=== PATIENT | male | born 1955 | race Caucasian/White ===

== ENCOUNTER → 2018-04-12 08:03 | Outpatient (CLI) | payer MEDICAID, SELFPAY ==
[2018-04-12 10:39] LABS: Hematocrit 50.2 % (40-54); Hemoglobin 16.3 g/dl (13.0-16.5); Mean Corp Hgb Conc 32.5 g/gl (32-36); Mean Corpuscular Hgb 30.6 pg (27.0-32.0); Mean Corpuscular Volume 94.2 fL (80-94); Platelet Count 761 K/mm3 (150-450); RBC Distribution Width CV 13.8 % (11.6-14.6); RBC Distribution Width SD 47.3 fl (35.1-43.9); Red Blood Count 5.33 M/mm3 (4.6-6.2); White Blood Count 13.5 K/mm3 (4.4-11.0)
[2018-04-12 10:40] LABS: Scan Indicated on CBC? Y/N YES- FLAGS NOTED
[2018-04-12 10:43] LABS: Anion Gap 8 (5-15); BUN 17 mg/dL (7-18); BUN/Creat Ratio 13.7 RATIO (10-20); Chloride 105 mmol/L (98-107); Creatinine, Serum 1.24 mg/dL (0.70-1.30); EST Glomerular Filtration Rate 63 mL/min (>60); Est Glom Filt Rate - Afr Amer 76 mL/min (>60); Glucose 96 mg/dL (74-106); Potassium 5.2 mmol/L (3.5-5.1); Sodium Level 140 mmol/L (136-145)
[2018-04-14 08:01] LABS: Pathologist Review Reviewed
== END ==
PROVIDERS: Family Provider Family Medicine; PCP Family Medicine
DX: I50.9 Heart failure, unspecified (principal); I48.91 Unspecified atrial fibrillation; I42.8 Other cardiomyopathies
CPT/HCPCS: 36415; 80048; 85027

== ENCOUNTER → 2018-04-21 20:00 | Outpatient (CLI) | payer MEDICAID, SELFPAY | PROVIDERS: Family Provider Family Medicine; PCP Family Medicine | DX: G47.10 Hypersomnia, unspecified (principal); I50.9 Heart failure, unspecified; I42.8 Other cardiomyopathies; I48.91 Unspecified atrial fibrillation; Z72.0 Tobacco use | CPT/HCPCS: 95810 ==

== ENCOUNTER → 2018-04-27 08:45 | Outpatient (CLI) | payer MEDICAID, SELFPAY ==
--- NOTE | 2018-04-27 08:48 | ECHOD_ITS ---
Reason For Study: CARDIOMYOPATHY Procedure This was a 2D Doppler, Color Flow transthoracic echocardiogram. Contrast injection was performed. Exam performed in department. Left Ventricle Normal LV size. The estimated ejection fraction is 30 %. Unable to assess diastolic dysfunction. There is moderate global hypokinesis of the left ventricle. Right Ventricle Normal RV size. Normal systolic function. Atria The left atrium is severely enlarged. The right atrium is moderately enlarged. Mitral Valve Normal mitral valve. Tricuspid Valve Normal tricuspid valve. Mild (1+) tricuspid valve insufficiency. Pulmonary artery systolic pressure is 24 mmHg. Aortic Valve Trisinus/trileaflet aortic valve. Pulmonic Valve The pulmonic valve is not well visualized. Great Vessels Normal aortic root. The pulmonary artery is normal size. Normal inferior vena cava. Pericardium/Pleural No pericardial effusion. Medication 22 gauge I.V. with prn adaptor inserted into right arm. Diluted definity 6ml given slow IV push to enhance endocardial definition. MMode/2D Measurements & Calculations LVIDd: 5.7 cm IVSd: 0.78 cm Ao root diam: 2.9 cm LVIDs: 5.0 cm LVPWd: 0.96 cm RVDd: 4.7 cm FS: 12.4 % LAV(MOD-bp): 139.6 ml EDV(MOD-sp4): 112.5 ml EDV(MOD-sp2): 104.9 ml LAV(MOD-bp) Indexed: 63.9 ml/m2 ESV(MOD-sp4): 65.6 ml EF(MOD-sp2): 42.1 % LAV(MOD-sp2): 110.1 ml EF(MOD-sp4): 41.7 % LAV(MOD-sp4): 142.2 ml SV(MOD-sp4): 46.9 ml SV(MOD-sp2): 44.2 ml LA A4 area: 36.8 cm2 RA A4 area: 25.9 cm2 Doppler Measurements & Calculations Ao V2 max: 97.3 cm/sec LV V1 max: 67.0 cm/sec PA V2 max: 65.1 cm/sec Ao max P.8 mmHg LV V1 max P.8 mmHg TR max deisy: 227.3 cm/sec TR max P.1 mmHg Interpretation Summary Normal LV size. The estimated ejection fraction is 30 %. Unable to assess diastolic dysfunction. There is moderate global hypokinesis of the left ventricle. The left atrium is severely enlarged. The right atrium is moderately enlarged. Mild (1+) tricuspid valve insufficiency. Compared to the previous there is a declne in LV function Ordering Physician: BASILIO MALLOY Referring Physician: JIM CHAIREZ Performed By: Jonna Prescott, DIPAK, RVT
== END ==
PROVIDERS: Family Provider Family Medicine; PCP Family Medicine
DX: I42.8 Other cardiomyopathies (principal)
CPT/HCPCS: 93306; Q9957; A4216; C8929

== ENCOUNTER → 2018-04-28 11:47 | Outpatient (CLI) | payer MEDICAID, SELFPAY ==
[2018-04-28 14:13] LABS: RBC Distribution Width CV 14.1 % (11.6-14.6)
[2018-04-28 14:19] LABS: Hematocrit 44.9 % (40-54); Hemoglobin 14.8 g/dl (13.0-16.5); Mean Corpuscular Hgb 30.8 pg (27.0-32.0); Mean Corpuscular Volume 93.3 fL (80-94); RBC Distribution Width SD 47.9 fl (35.1-43.9); Red Blood Count 4.81 M/mm3 (4.6-6.2); White Blood Count 12.4 K/mm3 (4.4-11.0)
[2018-04-28 14:20] LABS: Absolute Lymphocyte Count 1.88 X10^3/ul (0.83-4.51); Absolute Neutrophil Count 9.2 X10^3/uL (2.0-7.7); Basophil# 0.13 X10^3/uL; Eosinophil# 0.43 X10^3/uL; Eosinophils% 3.5 % (0-5); Lymphocyte # 1.88 X10^3/ul (4.0); Lymphocyte % 15.1 % (19-41); Mean Platelet Vol. 11.3 fl (6.2-12.0); Monocyte# 0.81 X10^3/uL; Monocyte% 6.5 % (0-10); Neutrophil # 9.17 X10^3/uL (2.7-7.7); Neutrophil % 73.7 % (47-70); POSITIVE COUNT NO; POSITIVE DIFFERENTIAL NO; POSITIVE MORPHOLOGY NO; Platelet Count 526 K/mm3 (150-450)
[2018-04-28 14:25] LABS: Anion Gap 9 (5-15); BUN 20 mg/dL (7-18); BUN/Creat Ratio 17.5 RATIO (10-20); Chloride 107 mmol/L (98-107); Creatinine, Serum 1.14 mg/dL (0.70-1.30); EST Glomerular Filtration Rate 69 mL/min (>60); Est Glom Filt Rate - Afr Amer 84 mL/min (>60); Glucose 98 mg/dL (74-106); Potassium 4.7 mmol/L (3.5-5.1); Sodium Level 143 mmol/L (136-145)
== END ==
PROVIDERS: Family Provider Family Medicine; PCP Family Medicine
DX: I11.0 Hypertensive heart disease with heart failure (principal); I50.32 Chronic diastolic (congestive) heart failure; I50.22 Chronic systolic (congestive) heart failure; E87.5 Hyperkalemia; G47.33 Obstructive sleep apnea (adult) (pediatric); I48.91 Unspecified atrial fibrillation; I42.9 Cardiomyopathy, unspecified; Z95.810 Presence of automatic (implantable) cardiac defibrillator
CPT/HCPCS: 36415; 80048; 85025

== ENCOUNTER → 2018-05-02 20:00 | Outpatient (CLI) | payer MEDICAID, SELFPAY | PROVIDERS: Family Provider Family Medicine; PCP Family Medicine | DX: G47.31 Primary central sleep apnea (principal); G47.33 Obstructive sleep apnea (adult) (pediatric) | CPT/HCPCS: 95811 ==

== ENCOUNTER → 2018-05-03 12:49 | Outpatient (CLI) | payer MEDICAID, SELFPAY ==
--- NOTE | 2018-05-03 13:16 | PCM.CR.HP2 ---
CR - History & Physical - General Arrival date:: 05/03/18 Arrival time:: 13:16 Date of Referral:: 03/28/18 Date of CR Evaluation:: 05/03/18 Referring Physician: Ashlee Jin Primary Diagnosis: I50.9 HF<30%, AICD Placement - History of Present Cardiac Event Onset Date: Enter Onset Date of cardiac illnesses in Comment field below Current stable Angina Pectoris:: Yes Heart Failure EF <35%:: Yes Interventions with present event:: Pacemaker defibrilator - Medications Home Medications: Ambulatory Orders Medication Instructions Recorded Eliquis 2.5 mg 05/03/18 Entresto 24 mg-26 mg Tablet 05/03/18 Metoprolol Succinate 50 mg 05/03/18 - Sleep Disorder Evaluation Hx of Sleep Apnea: Yes Do you snore loudly (louder than talking or can be heard through closed doors)?: Yes Do you often feel tired/ fatigued/ sleepy during daytime?: Yes Has anyone observed you stop breathing during sleep?: Yes History of Hypertension (for STOP score): No - getting machine soon STOP Results: Positive Advanced Directives - Advanced Directives Power of Chemical Engineering Intern: No Living Will: No Advance Directives Information Provided: No Advance Directives on File: No DNR Order?:: No Past Medical History - Past Medical Illness Medical History: Past Medical History (Last Updated 05/03/18 @ 13:29 by DEVIKA Valerio, RVT) Atrial fibrillation I48.91 CHF (congestive heart failure) I50.9 Ventricular fibrillation I49.01 - Past Surgical History Surgical History: pacemaker implantation Social History - Smoking History Smoking Status: Former smoker Years Smokin Packs Smoked per Day: 1.5 Hx Smoking Cessation Date: 2011 Hx Tobacco Use: Yes Hx Smoking Exposure: Yes - Alcohol Use Alcohol Usage: No - Occupation Occupation (List type of work in comments):: Employed Hours worked per day:: 6 - Hobbies, Recreation, Social Activities Hobbies: Walking, Exercise Recreational Activities: I can hardly do any recreational activities Social Environment - Status Marital Status: Single - lives with girlfriend - Children How many children do you have?: 2 Do any of your children live nearby?: Yes - 1 of the two - Safety Do you feel safe in your surroundings?: Yes - Assistance Do you need any assistance at home?: none Review of Systems - Review of Systems Hints: Right click = Denies (Slash). Left click = Reports ([place]) Review of Present Symptoms: Reports: Shortness of Breath with Exertion, Angina, Fatigue, Heart Arrhythmia/Irregularities - a-fib, Appetite - Normal, Appetite - Special Diet. Denies: Shortness of Breath at Rest, PVD, Operative Discomfort, Wound Healing, Dizziness/Lightheadedness, Sexual Changes - Pain Is Patient Pain Free?: Yes Risk Factor Assessment - Chief Complaint Chief Complaint: CHF, Cardiac arrest - Vital Signs Pulse Ox: 96 - Pulse Pulse Rate: 96 Pulse Rhythm: Irregular - Hypertension Blood Pressure Sitting - Left Arm: 118/70 - Stress Stress: Long-standing - Diabetes Nutrition Referral for Diabetes: No - Obesity Height: 1.83 m Weight:: 98.883 kg Weight in Pounds: 218.0 lbs Body Mass Index (BMI): 29.5 Nutritional Referral for Obesity: No - Physical Inactivity Physical Inactivity: Physically demanding job, Recreational activity - Risk Stratification Risk Guidelines: Moderate Risk: Risk Factor for Smoking, Risk Factor for Dyslipidemia, Risk Factor for Diabetes, Risk Factor for Obesity, Risk Factor for Hypertension, Risk Factor for Sedentary Lifestyle, Risk Factor for Depression - For Smoking Smoking Risk Guidelines: Smoking Low Risk: None or quit greater than 6 months ago. Smoking Moderate Risk: Smoker or quit 6 months or less ago. Smoking High Risk: Smoker - For Dyslipidemia Dyslipidemia Risk Guidelines: Low Risk: Moderate Risk: High Risk: 15-25% fat 25.1-29% fat >/= 30% fat. <7% sat fat 7-9% sat fat >9% sat fat. <150 mg chol 150-299 mg chol >/= 300 mg chol. LDL <100 LDL 100-129 LDL >/= 130. Chol/HDL ratio <5.0 Chol/HDL ratio 5.0-6.0 Chol/HDL ratio >6.0. Triglycerides <100 Triglycerides 100-149 Triglycerides >/= 150 - For Diabetes Mellitus Diabetes Risk Guidelines: Diabetes Low Risk: HgA1c <6.5% and/or FBG <120. Diabetes Moderate Risk: HgA1c 6.6-7.9% and/or FBG 120-180. Diabetes High Risk: HgA1c >/= 8% and/or FBG >180 - For Obesity/Overweight Obesity/Overweight Risk Guidelines: Obesity Low Risk: BMI <25.0. Obesity Moderate Risk: BMI 25-29.9. Obesity High Risk: BMI >/= 30.0 - For Hypertension Hypertension Risk Guidelines: Hypertension Low Risk: Systolic <120 and Diastolic <80. Hypertension Moderate Risk: Systolic 120-139 and Diastolic 80-89. Hypertension High Risk: Systolic >/= 140 and Diastolic >/= 90 - For Sedentary Lifestyle Sedentary Lifestyle Risk Guidelines: Sedentary Lifestyle Low Risk: >/= 1,500 kcal/week. Sedentary Lifestyle Moderate Risk: 700-1,499 kcal/week. Sedentary Lifestyle High Risk: < 700 kcal/week - For Depression Depression Risk Guidelines: Depression Low Risk: Not clinically depressed. Depression Moderate Risk: Mildly depressed. Depression High Risk: Clinically depressed Motivation - Motivation to Participate On a scale of 1 to 10, how prepared are you to commit to attending program?: 10 What do you see as barriers to successfully being able to complete the program?: physical limitations What do you see as the benefits of succesfully completing the program? In other words, what do you hope to get out of participating in the program?: beter fitness Are there issues you are dealing with that will interfere with completing the program?: none Do you have a spouse or signficant other, family or friends who will help support you to complete the program?: girlfriend
--- NOTE | 2018-05-03 13:26 | CR.HP_ITS ---
CR - History & Physical - General Arrival date:: 05/03/18 Arrival time:: 13:16 Date of Referral:: 03/28/18 Date of CR Evaluation:: 05/03/18 Referring Physician: Ashlee Jin Primary Diagnosis: I50.9 HF<30%, AICD Placement - History of Present Cardiac Event Onset Date: Enter Onset Date of cardiac illnesses in Comment field below Current stable Angina Pectoris:: Yes Heart Failure EF <35%:: Yes Interventions with present event:: Pacemaker defibrilator - Medications Home Medications: Ambulatory Orders Medication Instructions Recorded Eliquis 2.5 mg 05/03/18 Entresto 24 mg-26 mg Tablet 05/03/18 Metoprolol Succinate 50 mg 05/03/18 - Sleep Disorder Evaluation Hx of Sleep Apnea: Yes Do you snore loudly (louder than talking or can be heard through closed doors)? : Yes Do you often feel tired/ fatigued/ sleepy during daytime?: Yes Has anyone observed you stop breathing during sleep?: Yes History of Hypertension (for STOP score): No - getting machine soon STOP Results: Positive Advanced Directives - Advanced Directives Power of Storeroom Attendant: No Living Will: No Advance Directives Information Provided: No Advance Directives on File: No DNR Order?:: No Past Medical History - Past Medical Illness Medical History: Past Medical History (Last Updated 05/03/18 @ 13:29 by DEVIKA Valerio, RVT) Atrial fibrillation I48.91 CHF (congestive heart failure) I50.9 Ventricular fibrillation I49.01 - Past Surgical History Surgical History: pacemaker implantation Social History - Smoking History Smoking Status: Former smoker Years Smokin Packs Smoked per Day: 1.5 Hx Smoking Cessation Date: 2011 Hx Tobacco Use: Yes Hx Smoking Exposure: Yes - Alcohol Use Alcohol Usage: No - Occupation Occupation (List type of work in comments):: Employed Hours worked per day:: 6 - Hobbies, Recreation, Social Activities Hobbies: Walking, Exercise Recreational Activities: I can hardly do any recreational activities Social Environment - Status Marital Status: Single - lives with girlfriend - Children How many children do you have?: 2 Do any of your children live nearby?: Yes - 1 of the two - Safety Do you feel safe in your surroundings?: Yes - Assistance Do you need any assistance at home?: none Review of Systems - Review of Systems Hints: Right click = Denies ([place]ash). Left click = Reports ([place]) Review of Present Symptoms: Reports: Shortness of Breath with Exertion, Angina, Fatigue, Heart Arrhythmia/Irregularities - a-fib, Appetite - Normal, Appetite - Special Diet. Denies: Shortness of Breath at Rest, PVD, Operative Discomfort, Wound Healing, Dizziness/Lightheadedness, Sexual Changes - Pain Is Patient Pain Free?: Yes Risk Factor Assessment - Chief Complaint Chief Complaint: CHF, Cardiac arrest - Vital Signs Pulse Ox: 96 - Pulse Pulse Rate: 96 Pulse Rhythm: Irregular - Hypertension Blood Pressure Sitting - Left Arm: 118/70 - Stress Stress: Long-standing - Diabetes Nutrition Referral for Diabetes: No - Obesity Height: 1.83 m Weight:: 98.883 kg Weight in Pounds: 218.0 lbs Body Mass Index (BMI): 29.5 Nutritional Referral for Obesity: No - Physical Inactivity Physical Inactivity: Physically demanding job, Recreational activity - Risk Stratification Risk Guidelines: Moderate Risk: Risk Factor for Smoking, Risk Factor for Dyslipidemia, Risk Factor for Diabetes, Risk Factor for Obesity, Risk Factor for Hypertension, Risk Factor for Sedentary Lifestyle, Risk Factor for Depression - For Smoking Smoking Risk Guidelines: Smoking Low Risk: None or quit greater than 6 months ago. Smoking Moderate Risk: Smoker or quit 6 months or less ago. Smoking High Risk: Smoker - For Dyslipidemia Dyslipidemia Risk Guidelines: Low Risk: Moderate Risk: High Risk: 15-25% fat 25.1-29% fat >/= 30% fat. <7% sat fat 7-9% sat fat >9% sat fat. <150 mg chol 150-299 mg chol >/= 300 mg chol. LDL <100 LDL 100-129 LDL >/= 130. Chol/HDL ratio <5.0 Chol/HDL ratio 5.0-6.0 Chol/HDL ratio >6.0. Triglycerides <100 Triglycerides 100-149 Triglycerides >/= 150 - For Diabetes Mellitus Diabetes Risk Guidelines: Diabetes Low Risk: HgA1c <6.5% and/or FBG <120. Diabetes Moderate Risk: HgA1c 6.6-7.9% and/or FBG 120-180. Diabetes High Risk: HgA1c >/= 8% and/or FBG >180 - For Obesity/Overweight Obesity/Overweight Risk Guidelines: Obesity Low Risk: BMI <25.0. Obesity Moderate Risk: BMI 25-29.9. Obesity High Risk: BMI >/= 30.0 - For Hypertension Hypertension Risk Guidelines: Hypertension Low Risk: Systolic <120 and Diastolic <80. Hypertension Moderate Risk: Systolic 120-139 and Diastolic 80-89. Hypertension High Risk: Systolic >/= 140 and Diastolic >/= 90 - For Sedentary Lifestyle Sedentary Lifestyle Risk Guidelines: Sedentary Lifestyle Low Risk: >/= 1 ,500 kcal/week. Sedentary Lifestyle Moderate Risk: 700-1,499 kcal/week. Sedentary Lifestyle High Risk: < 700 kcal/week - For Depression Depression Risk Guidelines: Depression Low Risk: Not clinically depressed. Depression Moderate Risk: Mildly depressed. Depression High Risk: Clinically depressed Motivation - Motivation to Participate On a scale of 1 to 10, how prepared are you to commit to attending program?: 10 What do you see as barriers to successfully being able to complete the program? : physical limitations What do you see as the benefits of succesfully completing the program? In other words, what do you hope to get out of participating in the program?: beter fitness Are there issues you are dealing with that will interfere with completing the program?: none Do you have a spouse or signficant other, family or friends who will help support you to complete the program?: girlfriend
[2018-05-03 14:26] VITALS: BP 118/70; PULSE 96; O2SAT 96; BMI 29.5
[2018-05-03 14:39] VITALS: BP 118/70
--- NOTE | 2018-05-03 14:39 | CR.ITP_ITS ---
General Information - General Information Admitting Diagnosis: I50.09 CHF, AICD - Education/Goals Barriers to Learning: None Cardiac Rehabilitation Goals: 1. Maintain the individual as the primary focus of care. 2. To improve the patient's quality of life. 3. Identification of cardiac risk factors and provide cardiac risk factor management. 4. Enhance the psychosocial status of the patient. 5. Reconditioning enough to allow the patient to resume customary activities. 6. Control symptoms of cardiac disease Scale for measuring improvement of personal goals: Enter appropriate number in Comments. 2 = Unchanged. 3 = Slightly Better. 4 = Moderate Improvement. 5 = Met my Goal Personal Goals: Initial Assessment: Participate in home exercise program, Get back to work, or to resume activities faster, Improve knowledge of cardiac disease, Improve muscle strength and endurance, Improve diet and eating habits ( eat healthier) Exercise - Initial Assessment - Visit Date of Eval: 05/03/18 - Initial EVAL - Stages of Change Stages of Change:: Contemplate - Exercise Prescription Mode:: Treadmill, Biodyne, Rower, Airdyne, NuStep, Arm Ergometer Angina with exercise?: No Target Heart Rate:: 111-118 - Hypertension Do any of the following apply?: No Resting Blood Pressure:: 118/70 - Intervention Home Exercise/Activity Goal:: Sitting Time <3 hrs/day - Education Goals:: Warm-up, RPE MARISA Scale, S/S, Safe Exercise, Self-Monitoring - Exercise Program Goals Exercise Program Goals: Aerobic Activity >30 min, B/P <130/80 Nutrition - Initial Assessment - Program Goals Nutrition Program Goals: LDL <70. Total Cholesterol <200. HDL >45. Triglycerides <150. HgbA1C <7%. BMI <25 - Visit Date of Assessment:: 05/03/18 - Stages of Change Stages of Change:: Contemplate - Diabetes Diabetes:: No - Weight Management Height: 1.83 m Weight:: 98.883 kg Total Score:: 3 - Intervention Referral to dietitian:: No Referral to Diabetic Clinic:: No Will attend diet classes:: Yes - Education Gave educational materials for:: Signs & symptoms of hypoglycemia, Signs & symptoms of hyperglycemia, Relate diabetes to coronary artery disease, Healthy eating Tobacco - Initial Assessment - Program Goals Tobacco Program Goals: Complete smoking cessation. Attend education classes. Improve Knowledge Test score - Stage of Change Stages of Change:: Contemplate - Learning Barriers Total Score:: 19 - Family Support Do you have family support?: Yes - Tobacco Use How long ago did you quit using tobacco products?: Greater than or equal to 6 months ago Do you use smokeless tobacco?: No - Intervention Smoking Cessation Referral:: No Individual Education/Counseling:: No Education Schedule Given:: Yes - Education Gave educational material for:: Tobacco triggers, Coronary artery disease, Risk factors, Sexuality, Medical compliance, Cardiac A&P, Angina signs & symptoms Psychosocial - Initial Assess - Target Goals Target Goals: Assess presence or absence of depression. Using a valid screening tool, maximizes coping skills. Positive support system - Stages of Change Stages of Change:: Contemplate - Psychosocial Test Tool Used:: HANDS Depression Questionnaire Total Mood Screening Score:: 8 Self-Efficacy Score:: 7 - Intervention PS - Interventions: Yes Attend Stress Management Classes, Yes Uses Stress Management Skills, No Referral to Mental Health, No Referral to [facility] Case Management, No Referral to Physician - Education Gave educational materials for:: Coping techniques, Signs & symptoms of depression, Stress management, Relaxation techniques - Assistive Devices Assistive Devices:: None Fall Risk Assessed:: Yes Patient Health Questionnaire Initial Assessment 1. Little interest or pleasure in doing things: Several days 2. Feeling down, depressed, or hopeless: Not at all 3. Trouble falling or staying asleep, or sleeping too much: Not at all 4. Feeling tired or having little energy: Nearly every day 5. Poor appetite or overeating: Nearly every day 6. Feeling bad about yourself -- or that you are a failure or have let yourself or your family down: Not at all 7. Trouble concentrating on things, such as reading the newspaper or watching television: Several days 8. Moving or speaking so slowly that other people could have noticed. Or the opposite - being so fidgety or restless that you have been moving around a lot more than usual: Not at all 9. Thoughts that you would be better off , or of hurting yourself in some way: Not at all How difficult have these problems made it for you to do your work, take care of things at home, or get along with other people?: Somewhat difficult Total Score: 8 [id number] SV Test - Statements CAD is a disease of the arteries in the heart: False Examples of risk factors for heart disease: True Angina is chest pain or discomfort: True The benefits of resistance training include: True Eating more meat and dairy products: False Anti-platelet medications such as aspirin are important: True The only effective way to manage stress: False An exercise warm-up slowly increases heart rate: True Prepared, processed foods usually have high sodium: True Depression is common after a heart attack: True The statin medications lower cholesterol: True To control blood pressure, lower the amount of sodium: True If someone gets chest discomfort during walking: False Transfats are partially hydrogenated vegetable oils: True Sleep apnea that is not treated increases the risk: False To control cholesterol, one should become a vegetarian: False Someone knows if he/she is exercising at the right level: False Diabetes cannot be prevented with exercise & health eating: False Stress is a large risk for heart attack: True A diet that can help lower blood pressure is rich in: True - Total Score Total Correct Responses: 19 Self-Efficacy Initial Assessment We would like to know how confident you are in doing certain activities. Please select your confidence level for:: Select your confidence level for the following using the scale 1-10 where 1 is not at all confident and 10 is totally confident. Your score is the average of all 6 responses. Fatigue: How confident are you that you can keep the fatigue caused by your disease from interfering with the things you want to do? Select Number: 2 Physical Discomfort or Pain: How confident are you that you can keep the physical discomfort or pain of your disease from interfering with the things you want to do? Select Number: 5 Emotional Distress: How confident are you that you can keep the emotional distress caused by your disease from interfering with the things you want to do? Select Number: 8 Other Symptoms or Health Problems: How confident are you that you can keep other symptoms or health problems from interfering with the things you want to do? Select Number: 8 Different Tasks and Activities: How confident are you that you can do the different tasks and activities needed to manage your health condition so as to reduce your need to see a doctor? Select Number: 10 Medication: How confident are you that you can do things other than just taking medication to reduce how much your illness affects your everyday life? Select Number: 10 Total Score:: 7 Nutrition Survey - Nutrition Survey Instructions Scoring Instructions: Scoring is as follows: Yes = 1 points. No = 0 point. Patient score that is >/=12 is considered to be at potential nutritional risk and could benefit from a referral to a registered dietitian. - Nutrition Survey Initial Have you lost >10 lbs over the past 2 months without trying?: No Are you following a special diet at home for diabetes, low fat, or low salt?: Yes Are you interested in meeting with a dietitian for help understanding your diet? : Yes Do you eat less than 3 meals a day?: No Do you eat fatty meats (rock, sausage, ribs, etc), fried foods, desserts, large amounts of salad dressings, margarine, butter, or cheese most days?: No Do you have food allergies? [Enter types in comment field]: No Do you eat in restaurants more than 3 times a week?: No Do you season food with salt, seasoning salt, or garlic salt?: Yes Do you used canned, boxed, frozen meals, or soups, seasoning packets?: No Total Score:: 3
== END ==
PROVIDERS: Family Provider Family Medicine; PCP Family Medicine
DX: I50.9 Heart failure, unspecified (principal); Z95.810 Presence of automatic (implantable) cardiac defibrillator

== ENCOUNTER → 2018-05-10 15:29 | Outpatient (CLI) | payer MEDICAID, SELFPAY ==
[2018-05-10 19:10] LABS: Uric Acid 8.8 mg/dL (3.5-7.2)
== END ==
PROVIDERS: Family Provider Family Medicine; PCP Family Medicine; Visit Provider Family Medicine
DX: M10.9 Gout, unspecified (principal)
CPT/HCPCS: 36415; 84550

== ENCOUNTER 2018-06-16 09:15 | Outpatient (RCR) | payer MEDICAID, SELFPAY ==
--- NOTE | 2018-06-09 13:36 | CR.ITP_ITS ---
General Information - General Information Admitting Diagnosis: heart failure LVEF<30%, AICD placement - Education/Goals Cardiac Rehabilitation Goals: 1. Maintain the individual as the primary focus of care. 2. To improve the patient's quality of life. 3. Identification of cardiac risk factors and provide cardiac risk factor management. 4. Enhance the psychosocial status of the patient. 5. Reconditioning enough to allow the patient to resume customary activities. 6. Control symptoms of cardiac disease Scale for measuring improvement of personal goals: Enter appropriate number in Comments. 2 = Unchanged. 3 = Slightly Better. 4 = Moderate Improvement. 5 = Met my Goal Exercise - 30-day Assessment - Visit Date of Eval: 06/09/18 Session #:: 7 - Stages of Change Stages of Change:: Action - Exercise Prescription Mode:: Treadmill, Rower, NuStep Frequency (x/week): 3 Duration:: 30 METs - Progression: 0.5-1 MET as tolerated: 2.5 Target Heart Rate:: 111-118 Max HR 150 A-Fib - Hypertension Resting Blood Pressure:: 114/50 Peak Exercise Blood Pressure:: 120/64 Medication Changes:: Yes - 05/23 inc Metoprolol 100 mg BID - Intervention Home Exercise/Activity Goal:: Moderate Exercise 30 min/day x 5 days/wk - Education Goals:: Warm-up, RPE MARISA Scale, S/S, Safe Exercise, Self-Monitoring - Exercise Program Goals Exercise Program Goals: Aerobic Activity >30 min, B/P <130/80 Nutrition - 30-Day Assessment - Program Goals Nutrition Program Goals: LDL <70. Total Cholesterol <200. HDL >45. Triglycerides <150. HgbA1C <7%. BMI <25 - Visit Date of Eval: 06/09/18 - Stages of Change Stages of Change:: Action - Lipids Has the patient seen the dietitian?: No - Weight Management Weight:: 101.151 kg - Intervention Referral to dietitian:: No Referral to Diabetic Clinic:: No Will attend diet classes:: Yes - Education Attended class for:: Signs & symptoms of hypoglycemia, Signs & symptoms of hyperglycemia, Relate diabetes to coronary artery disease, Healthy eating Tobacco - 30-Day Assessment - Program Goals Tobacco Program Goals: Complete smoking cessation. Attend education classes. Improve Knowledge Test score - Stage of Change Stages of Change:: Action - Learning Barriers Learning Barriers: Participates in education - Family Support Do you have family support?: Yes - Tobacco Use Tobacco Use: Non-smoker Do you use smokeless tobacco?: No - Intervention Smoking Cessation Referral:: No Individual Education/Counseling:: No Education Schedule Given:: Yes - Education Attended class for:: Tobacco triggers, Coronary artery disease, Risk factors, Sexuality, Medical compliance, Cardiac A&P, Angina signs & symptoms Psychosocial - Initial Assess - Target Goals Target Goals: Assess presence or absence of depression. Using a valid screening tool, maximizes coping skills. Positive support system - Psychosocial Test Tool Used:: HANDS Depression Questionnaire - Assistive Devices Fall Risk Assessed:: Yes Psychosocial - 30-Day Assess - Target Goals Target Goals: Assess presence or absence of depression. Using a valid screening tool, maximizes coping skills. Positive support system - Stages of Change Stages of Change:: Action - Psychosocial Test Tool Used:: HANDS Depression Questionnaire - Intervention PS - Interventions: Yes Attend Stress Management Classes, Yes Uses Stress Management Skills, No Referral to Mental Health, No Referral to [facility] Case Management, No Referral to Physician - Education Attended classes for:: Coping techniques, Signs & symptoms of depression, Stress management, Relaxation techniques - Assistive Devices Assistive Devices:: None Fall Risk Assessed:: Yes Patient Health Questionnaire 30-Day Re-eval Assessment 1. Little interest or pleasure in doing things: Several days 2. Feeling down, depressed, or hopeless: Not at all 3. Trouble falling or staying asleep, or sleeping too much: Not at all 4. Feeling tired or having little energy: Nearly every day 5. Poor appetite or overeating: Nearly every day 6. Feeling bad about yourself -- or that you are a failure or have let yourself or your family down: Not at all 7. Trouble concentrating on things, such as reading the newspaper or watching television: Several days 8. Moving or speaking so slowly that other people could have noticed. Or the opposite - being so fidgety or restless that you have been moving around a lot more than usual: Not at all 9. Thoughts that you would be better off , or of hurting yourself in some way: Not at all How difficult have these problems made it for you to do your work, take care of things at home, or get along with other people?: Somewhat difficult Total Score: 8 Self-Efficacy 30-Day Re-eval Assessment We would like to know how confident you are in doing certain activities. Please select your confidence level for:: Select your confidence level for the following using the scale 1-10 where 1 is not at all confident and 10 is totally confident. Your score is the average of all 6 responses. Fatigue: How confident are you that you can keep the fatigue caused by your disease from interfering with the things you want to do? Select Number: 3 Physical Discomfort or Pain: How confident are you that you can keep the physical discomfort or pain of your disease from interfering with the things you want to do? Select Number: 5 Emotional Distress: How confident are you that you can keep the emotional distress caused by your disease from interfering with the things you want to do? Select Number: 8 Other Symptoms or Health Problems: How confident are you that you can keep other symptoms or health problems from interfering with the things you want to do? Select Number: 8 Different Tasks and Activities: How confident are you that you can do the different tasks and activities needed to manage your health condition so as to reduce your need to see a doctor? Select Number: 10 Medication: How confident are you that you can do things other than just taking medication to reduce how much your illness affects your everyday life? Select Number: 10 Total Score:: 7
[2018-06-09 13:39] VITALS: BP 114/50; BP 120/64
== END 2018-06-16 23:59 ==
LOC: CR 09:15
PROVIDERS: Family Provider Family Medicine; PCP Family Medicine
DX: I50.9 Heart failure, unspecified (principal)
CPT/HCPCS: 93798

== ENCOUNTER → 2018-07-04 09:49 | Outpatient (CLI) | payer MEDICAID, SELFPAY ==
--- NOTE | 2018-07-04 09:53 | ECHOD_ITS ---
Reason For Study: NONISCHEMIC CM Procedure This was a 2D Doppler, Color Flow transthoracic echocardiogram. The study was technically limited. Exam performed in department. Left Ventricle Mildly dilated left ventricle. The estimated ejection fraction is 30 %. Moderately severe global left ventricular systolic dysfunction. Diastolic function is indeterminate. There is moderate to severe global hypokinesis of the left ventricle. Right Ventricle ICD or pacer leads identified within the right ventricle. Mildly dilated right ventricle. Mild global right ventricular systolic dysfunction. Atria The left atrium is severely enlarged. Normal right atrium. Mitral Valve Mild diffuse mitral valve thickening. Mild (1+) eccentric mitral valve insufficiency. Tricuspid Valve Normal tricuspid valve. Aortic Valve Normal aortic valve. Trisinus/trileaflet aortic valve. Pulmonic Valve Normal pulmonic valve. Great Vessels Normal aortic root. The pulmonary artery is normal size. Normal inferior vena cava. Pericardium/Pleural No pericardial effusion. Medication Definity deferrred. DEFINITY REACTION Severe back pain to Definity on previous echo. DO NOT USE!!. MMode/2D Measurements & Calculations LVIDd: 5.9 cm IVSd: 1.0 cm Ao root diam: 3.5 cm LVIDs: 4.4 cm LVPWd: 0.94 cm LA dimension: 4.8 cm RVDd: 4.3 cm FS: 25.7 % LAV(MOD-bp): 129.3 ml LVAd ap4: 39.8 cm2 SV(MOD-sp4): 69.1 ml LAV(MOD-bp) Indexed: 59.2 ml/m2 EDV(MOD-sp4): 150.2 ml LAV(MOD-sp2): 110.5 ml EDV(sp4-el): 164.1 ml LAV(MOD-sp4): 124.9 ml LVAs ap4: 26.6 cm2 ESV(MOD-sp4): 81.1 ml ESV(sp4-el): 84.5 ml EF(MOD-sp4): 46.0 % EF(sp4-el): 48.5 % SV(sp4-el): 79.6 ml LA A4 area: 36.0 cm2 RA A4 area: 18.2 cm2 Doppler Measurements & Calculations Lat Peak E' Kaveh: 3.0 cm/sec Med Peak E' Kaveh: 3.2 cm/sec Ao V2 max: 82.6 cm/sec Ao max P.7 mmHg LV V1 max: 66.4 cm/sec PA V2 max: 91.3 cm/sec PI end-d kaveh: 129.2 cm/sec LV V1 max P.8 mmHg TR max kaveh: 228.1 cm/sec TR max P.8 mmHg Interpretation Summary Mildly dilated left ventricle. The estimated ejection fraction is 30 %. Moderately severe global left ventricular systolic dysfunction. Diastolic function is indeterminate. The left atrium is severely enlarged. Compared to prior study, there is no significant change. Ordering Physician: Cassia Jin Referring Physician: JIM CHAIREZ Performed By: Jonna Prescott, DIPAK, RVT
== END ==
PROVIDERS: Family Provider Family Medicine; PCP Family Medicine
DX: G47.33 Obstructive sleep apnea (adult) (pediatric) (principal); I42.0 Dilated cardiomyopathy; I48.0 Paroxysmal atrial fibrillation; I50.42 Chronic combined systolic (congestive) and diastolic (congestive) heart failure; E87.5 Hyperkalemia; I95.9 Hypotension, unspecified
CPT/HCPCS: 93306

== ENCOUNTER 2018-07-14 09:15 | Outpatient (RCR) | payer MEDICAID, SELFPAY ==
[2018-06-17 00:17] VITALS: BP 114/50; BP 120/64
--- NOTE | 2018-07-12 13:38 | PCM.CR.ITP ---
General Information - General Information Admitting Diagnosis: heart failure LVEF <30%, AICD placement - Education/Goals Cardiac Rehabilitation Goals: 1. Maintain the individual as the primary focus of care. 2. To improve the patient's quality of life. 3. Identification of cardiac risk factors and provide cardiac risk factor management. 4. Enhance the psychosocial status of the patient. 5. Reconditioning enough to allow the patient to resume customary activities. 6. Control symptoms of cardiac disease Scale for measuring improvement of personal goals: Enter appropriate number in Comments. 2 = Unchanged. 3 = Slightly Better. 4 = Moderate Improvement. 5 = Met my Goal Exercise - 60-Day Assessment - Visit Date of Eval: 07/12/18 Session #:: 20 - Stages of Change Stages of Change:: Action - Exercise Prescription Mode:: Treadmill, Airdyne Frequency (x/week): 3 Duration:: 30 METs: 3.6 Target Heart Rate:: 111-118 Max HR 93 - Hypertension Resting Blood Pressure:: 104/70 Peak Exercise Blood Pressure:: 118/70 Medication Changes:: Yes - 07/04 Digoxin 0.125 mg QD started - Intervention Home Exercise/Activity Goal:: Sitting Time <3 hrs/day - Education Goals:: Warm-up, RPE MARISA Scale, S/S, Safe Exercise, Self-Monitoring - Exercise Program Goals Exercise Program Goals: Aerobic Activity >30 min, B/P <130/80 Nutrition - 60-Day Assessment - Program Goals Nutrition Program Goals: LDL <70. Total Cholesterol <200. HDL >45. Triglycerides <150. HgbA1C <7%. BMI <25 - Visit Date of Eval: 07/12/18 - Stages of Change Stages of Change:: Action - Lipids Has the patient seen the dietitian?: No - Diabetes Diabetes:: No - Intervention Referral to dietitian:: No Referral to Diabetic Clinic:: No Will attend diet classes:: Yes - Education Attended class for:: Signs & symptoms of hypoglycemia, Signs & symptoms of hyperglycemia, Relate diabetes to coronary artery disease, Healthy eating Tobacco - 60-Day Assessment - Program Goals Tobacco Program Goals: Complete smoking cessation. Attend education classes. Improve Knowledge Test score - Stage of Change Stages of Change:: Action - Learning Barriers Learning Barriers: Participates in education - Family Support Do you have family support?: Yes - Tobacco Use Tobacco Use: Non-smoker Do you use smokeless tobacco?: No - Intervention Smoking Cessation Referral:: No Individual Education/Counseling:: No Education Schedule Given:: Yes - Education Attended class for:: Tobacco triggers, Coronary artery disease, Risk factors, Sexuality, Medical compliance, Cardiac A&P, Angina signs & symptoms Psychosocial - Initial Assess - Target Goals Target Goals: Assess presence or absence of depression. Using a valid screening tool, maximizes coping skills. Positive support system - Psychosocial Test Tool Used:: HANDS Depression Questionnaire - Assistive Devices Fall Risk Assessed:: Yes Psychosocial - 60-Day Assess - Target Goals Target Goals: Assess presence or absence of depression. Using a valid screening tool, maximizes coping skills. Positive support system - Stages of Change Stages of Change:: Action - Psychosocial Test Tool Used:: HANDS Depression Questionnaire - Intervention PS - Interventions: Yes Attend Stress Management Classes, Yes Uses Stress Management Skills, No Referral to Mental Health, No Referral to [facility] Case Management, No Referral to Physician - Education Attended classes for:: Coping techniques, Signs & symptoms of depression, Stress management, Relaxation techniques - Assistive Devices Assistive Devices:: None Fall Risk Assessed:: Yes Patient Health Questionnaire 60-Day Re-eval Assessment 1. Little interest or pleasure in doing things: Several days 2. Feeling down, depressed, or hopeless: Not at all 3. Trouble falling or staying asleep, or sleeping too much: Not at all 4. Feeling tired or having little energy: Nearly every day 5. Poor appetite or overeating: Nearly every day 6. Feeling bad about yourself -- or that you are a failure or have let yourself or your family down: Not at all 7. Trouble concentrating on things, such as reading the newspaper or watching television: Several days 8. Moving or speaking so slowly that other people could have noticed. Or the opposite - being so fidgety or restless that you have been moving around a lot more than usual: Not at all 9. Thoughts that you would be better off , or of hurting yourself in some way: Not at all How difficult have these problems made it for you to do your work, take care of things at home, or get along with other people?: Somewhat difficult Total Score: 8 Self-Efficacy 60-Day Re-eval Assessment We would like to know how confident you are in doing certain activities. Please select your confidence level for:: Select your confidence level for the following using the scale 1-10 where 1 is not at all confident and 10 is totally confident. Your score is the average of all 6 responses. Fatigue: How confident are you that you can keep the fatigue caused by your disease from interfering with the things you want to do? Select Number: 3 Physical Discomfort or Pain: How confident are you that you can keep the physical discomfort or pain of your disease from interfering with the things you want to do? Select Number: 5 Emotional Distress: How confident are you that you can keep the emotional distress caused by your disease from interfering with the things you want to do? Select Number: 8 Other Symptoms or Health Problems: How confident are you that you can keep other symptoms or health problems from interfering with the things you want to do? Select Number: 8 Different Tasks and Activities: How confident are you that you can do the different tasks and activities needed to manage your health condition so as to reduce your need to see a doctor? Select Number: 10 Medication: How confident are you that you can do things other than just taking medication to reduce how much your illness affects your everyday life? Select Number: 10 Total Score:: 7
[2018-07-12 13:43] VITALS: BP 104/70; BP 118/70
== END 2018-07-16 23:59 ==
LOC: CR 09:15
PROVIDERS: Family Provider Family Medicine; PCP Family Medicine
DX: I50.9 Heart failure, unspecified (principal)
CPT/HCPCS: 93798

== ENCOUNTER → 2018-08-08 11:00 | Outpatient (CLI) | payer MEDICAID, SELFPAY | PROVIDERS: Family Provider Family Medicine; PCP Family Medicine; Visit Provider Nurse Practitioner Acute Care | DX: G47.33 Obstructive sleep apnea (adult) (pediatric) (principal) | CPT/HCPCS: 98960; G0463 ==

== ENCOUNTER 2018-08-16 09:15 | Outpatient (RCR) | payer MEDICAID, SELFPAY ==
[2018-07-17 00:20] VITALS: BP 104/70; BP 118/70
--- NOTE | 2018-08-11 08:15 | PCM.CR.ITP ---
Exercise - Final/Discharge - Visit Date of Eval: 08/11/18 Session #:: 32 - Stages of Change Stages of Change:: Action - Exercise Prescription Mode:: Treadmill, Rower, Airdyne, NuStep Frequency (x/week): 3 Duration:: 35 METs: 5.5 Target Heart Rate:: 118-135 - Hypertension Do any of the following apply?: Yes, Medication Resting Blood Pressure:: 98/66 Peak Exercise Blood Pressure:: 126/70 - Intervention Home Exercise/Activity Goal:: Moderate Exercise 30 min/day x 5 days/wk - Education Goal Progress: Goal Met - Exercise Program Goals Exercise Program Goals: Aerobic Activity >30 min Nutrition - Final Assessment - Program Goals Nutrition Program Goals: LDL <70. Total Cholesterol <200. HDL >45. Triglycerides <150. HgbA1C <7%. BMI <25 - Visit Date of Eval: 08/11/18 - Stages of Change Stages of Change:: Action - Diabetes Diabetes:: No Non-Insulin Dependent?: No - Weight Management Height: 6 ft Weight:: 222 lb 8 oz Body Fat %:: 29.57 - Intervention Referral to dietitian:: No Referral to Diabetic Clinic:: No Will attend diet classes:: Yes - Education Education Goal Reached?: Yes Tobacco - Final Assessment - Program Goals Tobacco Program Goals: Complete smoking cessation. Attend education classes. Improve Knowledge Test score - Stage of Change Stages of Change:: Action - Family Support Do you have family support?: Yes - Tobacco Use Tobacco Use: Non-smoker Do you use smokeless tobacco?: No - Intervention Smoking Cessation Referral:: No Individual Education/Counseling:: No Education Schedule Given:: Yes - Education Education Goal Reached?: Yes - Patient actively participated in education Psychosocial - Initial Assess - Target Goals Target Goals: Assess presence or absence of depression. Using a valid screening tool, maximizes coping skills. Positive support system - Psychosocial Test Tool Used:: HANDS Depression Questionnaire - Assistive Devices Fall Risk Assessed:: Yes Psychosocial - Final Assessmen - Target Goals Target Goals: Assess presence or absence of depression. Using a valid screening tool, maximizes coping skills. Positive support system - Stages of Change Stages of Change:: Action - Psychosocial Test Tool Used:: HANDS Depression Questionnaire - Intervention PS - Interventions: Yes Attend Stress Management Classes, Yes Uses Stress Management Skills, No Referral to Mental Health, No Referral to [facility] Case Management, No Referral to Physician - Education Education Goal Reached?: Yes - Patient/Program Goal Preventative Medication(s):: Aspirin, Clopidogrel, Beta dusty, Statin/lipid - Assistive Devices Assistive Devices:: None Fall Risk Assessed:: Yes Patient Health Questionnaire Discharge Assessment 1. Little interest or pleasure in doing things: Not at all 2. Feeling down, depressed, or hopeless: Not at all 3. Trouble falling or staying asleep, or sleeping too much: Not at all 4. Feeling tired or having little energy: Not at all 5. Poor appetite or overeating: Not at all 6. Feeling bad about yourself -- or that you are a failure or have let yourself or your family down: Not at all 7. Trouble concentrating on things, such as reading the newspaper or watching television: Not at all 8. Moving or speaking so slowly that other people could have noticed. Or the opposite - being so fidgety or restless that you have been moving around a lot more than usual: Not at all 9. Thoughts that you would be better off , or of hurting yourself in some way: Not at all Total Score: 0 [id number] SV Test - Statements CAD is a disease of the arteries in the heart: False Examples of risk factors for heart disease: True Angina is chest pain or discomfort: True The benefits of resistance training include: True Eating more meat and dairy products: False Anti-platelet medications such as aspirin are important: True The only effective way to manage stress: False An exercise warm-up slowly increases heart rate: True Prepared, processed foods usually have high sodium: True Depression is common after a heart attack: True The statin medications lower cholesterol: True To control blood pressure, lower the amount of sodium: True If someone gets chest discomfort during walking: False Transfats are partially hydrogenated vegetable oils: True Sleep apnea that is not treated increases the risk: False To control cholesterol, one should become a vegetarian: False Someone knows if he/she is exercising at the right level: True Diabetes cannot be prevented with exercise & health eating: False Stress is a large risk for heart attack: True A diet that can help lower blood pressure is rich in: True - Total Score Total Correct Responses: 20 Self-Efficacy Discharge Assessment We would like to know how confident you are in doing certain activities. Please select your confidence level for:: Select your confidence level for the following using the scale 1-10 where 1 is not at all confident and 10 is totally confident. Your score is the average of all 6 responses. Fatigue: How confident are you that you can keep the fatigue caused by your disease from interfering with the things you want to do? Select Number: 10 Physical Discomfort or Pain: How confident are you that you can keep the physical discomfort or pain of your disease from interfering with the things you want to do? Select Number: 10 Emotional Distress: How confident are you that you can keep the emotional distress caused by your disease from interfering with the things you want to do? Select Number: 10 Other Symptoms or Health Problems: How confident are you that you can keep other symptoms or health problems from interfering with the things you want to do? Select Number: 10 Different Tasks and Activities: How confident are you that you can do the different tasks and activities needed to manage your health condition so as to reduce your need to see a doctor? Select Number: 10 Medication: How confident are you that you can do things other than just taking medication to reduce how much your illness affects your everyday life? Select Number: 10 Total Score:: 10 Nutrition Survey - Nutrition Survey Instructions Scoring Instructions: Scoring is as follows: Yes = 1 points. No = 0 point. Patient score that is >/=12 is considered to be at potential nutritional risk and could benefit from a referral to a registered dietitian. - Nutrition Survey Discharge Have you lost >10 lbs over the past 2 months without trying?: No Are you following a special diet at home for diabetes, low fat, or low salt?: Yes - 1800 calorie low fat no sodium diet Are you interested in meeting with a dietitian for help understanding your diet?: No Do you eat less than 3 meals a day?: No Do you eat fatty meats (rock, sausage, ribs, etc), fried foods, desserts, large amounts of salad dressings, margarine, butter, or cheese most days?: No Do you have food allergies? [Enter types in comment field]: No Do you eat in restaurants more than 3 times a week?: No Do you season food with salt, seasoning salt, or garlic salt?: No Do you used canned, boxed, frozen meals, or soups, seasoning packets?: Yes - rarely, but do use them on occasion Total Score:: 2
[2018-08-11 08:21] VITALS: BP 126/70; BP 98/66
== END 2018-08-16 23:59 ==
LOC: CR 09:15
PROVIDERS: Family Provider Family Medicine; PCP Family Medicine
DX: I50.9 Heart failure, unspecified (principal)
CPT/HCPCS: 93798

== ENCOUNTER 2018-08-18 13:11 | Outpatient (RCR) | payer MEDICAID, SELFPAY ==
[2018-08-17 00:31] VITALS: BP 126/70; BP 98/66
== END 2018-09-15 23:59 ==
LOC: CR 13:11
PROVIDERS: Family Provider Family Medicine; PCP Family Medicine
DX: I50.9 Heart failure, unspecified (principal)
CPT/HCPCS: 93798

== ENCOUNTER 2018-09-14 06:00 | Outpatient (RCR) | payer MEDICAID, SELFPAY | END 2018-09-15 23:59 | LOC: CR 06:00 | PROVIDERS: Family Provider Family Medicine; PCP Family Medicine; Visit Provider Internal Medicine Cardiovascular Disease | DX: I50.9 Heart failure, unspecified (principal) ==

== ENCOUNTER 2018-10-12 06:00 | Outpatient (RCR) | payer SELFPAY ==
[2018-08-31 07:14] VITALS: BMI 30.1
== END 2018-10-16 23:59 ==
LOC: CR 06:00
PROVIDERS: Family Provider Family Medicine; PCP Family Medicine; Referring Provider Internal Medicine Cardiovascular Disease; Visit Provider Internal Medicine Cardiovascular Disease
DX: Z00.00 Encounter for general adult medical examination without abnormal findings (principal)

== ENCOUNTER 2018-10-19 07:19 | Outpatient (RCR) | payer SELFPAY ==
[2018-08-31 07:14] VITALS: BMI 30.1
== END 2018-11-16 23:59 ==
LOC: CR 07:19
PROVIDERS: Family Provider Family Medicine; PCP Family Medicine; Referring Provider Internal Medicine Cardiovascular Disease; Visit Provider Internal Medicine Cardiovascular Disease
DX: Z00.00 Encounter for general adult medical examination without abnormal findings (principal)

== ENCOUNTER → 2019-05-28 08:30 | Outpatient (CLI) | payer MEDICAID, SELFPAY ==
[2019-05-22 10:59] VITALS: BMI 30.4
[2019-05-28 09:51] LABS: Absolute Lymphocyte Count 2.26 X10^3/uL (0.83-4.51); Absolute Neutrophil Count 9.9 X10^3/uL (2.0-7.7); Basophil# 0.18 X10^3/uL; Basophil% 1.3 % (0-1); Eosinophil# 0.29 X10^3/uL; Hematocrit 44.9 % (40-54); Hemoglobin 14.9 g/dL (13.0-16.5); Lymphocyte # 2.26 X10^3/ul (4.0); Lymphocyte % 15.9 % (19-41); Mean Corp Hgb Conc 33.2 g/dL (32-36); Mean Corpuscular Hgb 30.6 pg (27.0-32.0); Mean Corpuscular Volume 92.2 fL (80-94); Mean Platelet Vol. 11.2 fl (6.2-12.0); Monocyte# 1.42 X10^3/uL; NRBC Flagged by Analyzer 0 % (0-5); Neutrophil # 9.94 X10^3/uL (2.7-7.7); Neutrophil % 70.2 % (47-70); Platelet Count 676 K/mm3 (150-450); RBC Distribution Width CV 14.6 % (11.6-14.6); RBC Distribution Width SD 49.1 fl (35.1-43.9); Red Blood Count 4.87 M/mm3 (4.6-6.2); White Blood Count 14.2 K/mm3 (4.4-11.0)
[2019-05-28 10:41] LABS: Anion Gap 8 (5-15); BUN 16 mg/dL (7-18); BUN/Creat Ratio 12.5 RATIO (10-20); Calcium,Total 8.6 mg/dL (8.5-10.1); Chloride 106 mmol/L (98-107); Creatinine, Serum 1.28 mg/dL (0.70-1.30); EST Glomerular Filtration Rate 60 mL/min (>60); Est Glom Filt Rate - Afr Amer 73 mL/min (>60); Glucose 94 mg/dL (74-106); Potassium 4.1 mmol/L (3.5-5.1); Sodium Level 140 mmol/L (136-145); T4 Free Direct 0.93 ng/dL (0.76-1.46); Thyroid Stim Hormone (TSH) 2.76 uIU/mL (0.358-3.74)
== END ==
PROVIDERS: Family Provider Family Medicine; PCP Family Medicine; Referring Provider Nurse Practitioner Family; Visit Provider Nurse Practitioner Family
DX: R06.09 Other forms of dyspnea (principal); R53.83 Other fatigue
CPT/HCPCS: 36415; 80048; 84439; 84443; 85025

== ENCOUNTER → 2019-06-21 | Outpatient (CLI) | payer MEDICAID, SELFPAY ==
[2019-05-22 10:59] VITALS: BMI 30.4
--- NOTE | 2019-06-21 09:00 | RAD_ITS ---
HISTORY: cough EXAM: XR Chest 2 Views: COMPARISON: None FINDINGS: # of images incl. paperwork: 2 Dual lead left subclavian approach left chest wall cardiac pacer/defibrillator. Trace calcific plaque within the aortic arch Lungs are clear. Heart is not enlarged. Kyphosis with degenerative disc disease and mild thoracic spondylosis. Pulmonary vascularity is distinct. No effusions. RAD/Chest PA and Lateral IMPRESSION: No acute cardiopulmonary disease perceived. at 2135 Reported and signed by: Francesco Aguilar MD Electronically Signed: Francesco Aguilar MD at 21:34 EDT Tel , Service support ,
[2019-06-21 10:22] LABS: Cholesterol 113 mg/dL (200); High Density Lipoprotein 24 mg/dL; PSA,Total - Annual Screen 0.46 ng/mL (0.00-4.00); Triglycerides 204 mg/dL; Very Low Density Lipoprotein 41 mg/dL (5-40)
== END | disposition home or self-care (01) ==
LOC: MFPLAB 08:49
PROVIDERS: Family Provider Family Medicine; PCP Family Medicine; Referring Provider Family Medicine; Visit Provider Family Medicine
DX: R53.83 Other fatigue (principal); R05 Cough; Z12.5 Encounter for screening for malignant neoplasm of prostate; Z13.220 Encounter for screening for lipoid disorders
CPT/HCPCS: 36415; 71046; 80061; 82306; 84153; G0103

== ENCOUNTER 2019-11-09 06:26 | Day surgery (SDC) | payer MEDICAID, SELFPAY ==
[2019-11-01 13:24] VITALS: BMI 30.7
--- NOTE | 2019-11-02 05:30 | HP_ITS ---
Intake Vital Signs 11/01/19 Height 6 ft 11/01/19 Weight: 234 lb 11/01/19 BMI 31.7 11/01/19 BP 132/78 H 11/01/19 Blood Pressure Location Rt brachial 11/01/19 Position Sitting 11/01/19 Respiration 18 11/01/19 Pulse 82 11/01/19 Pulse Source Monitor 11/01/19 Temp 98.4 F 11/01/19 Temp Source Oral 11/01/19 Pulse Oximetry (%) 97 11/01/19 Oxygen Delivery Method room air Intake Visit Reasons: Cscope Consult Chief Complaint: colonoscopy Spikemaking Supervisor Required: No Is patient in pain?: No Allergies No Known Allergies Allergy (Verified 11/01/19 13:23) Medications multivitamin 1 tab PO QAM 05/17/18 [History Confirmed 11/01/19] diltiazem HCl 120 mg capsule,extended release 24 hr 120 mg PO BID #60 cap 05/14/19 [Rx Confirmed 11/01/19] cholecalciferol (vitamin D3) 25 mcg (1,000 unit) capsule 1,000 unit PO DAILY 05/22/19 [History Confirmed 11/01/19] apixaban 5 mg tablet 5 mg PO BID #180 tab 05/24/19 [Rx Confirmed 11/01/19] furosemide 20 mg tablet 20 mg PO BID #180 tab 06/19/19 [Rx Confirmed 11/01/19] metoprolol succinate 100 mg tablet,extended release 24 hr 50 mg PO BID #90 tab 06/19/19 [Rx Confirmed 11/01/19] lisinopril 2.5 mg tablet 2.5 mg PO QDAY #90 tab 09/03/19 [Rx Confirmed 11/01/19] [facility] Medical History Leukocytosis (Chronic) Thrombocytosis (Chronic) Myeloproliferative neoplasm (Chronic) Obesity (BMI 30.0-34.9) (Chronic) Cardiac arrest with ventricular fibrillation (Acute) Chronic combined systolic and diastolic CHF (congestive heart failure) (Acute) Nicotine dependence (Chronic) Non-ischemic cardiomyopathy (Chronic) Obstructive sleep apnea (Acute) Persistent atrial fibrillation (Chronic) Ventricular fibrillation (Acute) Surgical History History of radiofrequency ablation procedure for cardiac arrhythmia (Resolved) Presence of automatic implantable cardioverter-defibrillator (Acute 03/31/18) History of left heart catheterization (Resolved 03/28/18) Family History (Updated 11/01/19 @ 13:21 by Janette Jauregui) Mother Heart disease SSS Father Arthritis Diabetes Heart disease Social History (Updated 11/02/19 @ 17:30 by Raoul Yuan MD) Smoking Status: Former smoker how long ago did patient quit smokin, 1.5ppd second hand exposure: Yes HPI HPI HPI: JONELLE RINCON, is a 64 M who presents to the office today for HPI HPI Surgical H&P: Yes HPI: JONELLE RINCON, is a 64 M who presents to the office today for Screening colonoscopy. The patient reports his last colonoscopy was 10 years ago. He is not have any blood in his stool or abdominal pain. He is on Eliquis and does have a pacemaker. He said he had a cardiac arrest but this was not deemed a myocardial infarction. ROS General General: Yes fatigue; no weight change, appetite, colon cancer, breast cancer or weakness HEENT HEENT: No difficulty swallowing, eye injury, eye surgery, swollen glands or hoarseness Endo Endocrine: No thyroid disease, diabetes mellitus, thyroid cancer, Hair loss, heat intolerance or cold intolerance Skin Skin: No rash or changing moles Breast Breast: No left breast lump, right breast lump, nipple discharge, breast pain, abnormal mammogram, abnormal US or breast enlargement Musc Musculoskeletal: Yes arthritis and gout; no back problems, rheumatoid arthritis or joint pain Cardio Cardiovascular: Yes pacemaker and atrial fibrillation; no murmur, heart disease, high blood pressure, heart attack, heart stent, palpitations, shortness of breat with exertion or chest pain Psych Psychiatric: No depression, anxiety or hearing voices Resp Respiratory: Yes shortness of breath, Yes sleep apnea, Yes cough, No COPD, No asthma, No emphysema, No wheezing Gastro Gastrointestinal: No abdominal pain, No nausea or vomiting, No diarrhea, No constipation, No blood in stool, No acid reflux, No hemorrhoids, No ulcers, No gallbladder problem, No black,tarry stools David Hematologic: Yes blood thinners, No blood disorders, No bleeding, No anemia, No blood clots Neuro Neurologic: No system reviewed and no additional complaints, except as docu, No as per HPI, No abnormal walking, No abnormal hearing, No abnormal movements, No abnormal speech, No behavioral changes, No burning sensations, No confusion, No seizure-like activity, No unsteadiness, No dizziness, No localized weakness, No frequent falls, No headache(s), No lack of coordination, No loss of vision, No memory loss, No numbness, No other visual disturbances, No radiating pain, No restless legs, No sensory deficit, No fainting, No tingling, No tremor(s), No weakness, No other Exam Const General: cooperative Orientation: alert, oriented x3 Chest Breast Palpation: No nipple discharge Resp Effort & Inspection: normal respiratory effort Auscultation: clear to auscultation bilaterally Cardio Rate: regular rate Rhythm: regular rhythm Heart Sounds: no murmurs GI Inspection: non-distended Palpation: soft, nontender Assessment & Plan Problems 1. Screen for colon cancer Z12.11 Plan Patient is here for screening colonoscopy. He reports his last colonoscopy was 10 years ago and he is due. He is not having any abdominal pain or blood in his stool. He has been asked to stop his blood thinner for 5 days and we will get approval from his manager operations and procurement. I explained endoscopy in detail to the patient. I explained the risks including but not limited to stroke or heart attack with anesthesia, perforation of the GI tract, bleeding, infection. I explained that any of these could necessitate further emergency surgery. The patient understands and all questions were answered sufficiently. The patient wishes to proceed with procedure. Raoul Yuan MD Pager: [facility] [address] [place] [address], [address] [place] [address] Office: Orders Orders: Colonoscopy Today Z12.11 Coding Level of Care Code Off vis,new,level 2 Diagnoses Screen for colon cancer Z12.11 11/02/19 1730 <Electronically signed by Raoul bray MD> Date _ Raoul Yuan MD
[2019-11-09] VITALS (8 sets, daily range): BP systolic 88–124; BP diastolic 62–78; PULSE 70–84; RESP 14–16; TEMP 36.1–36.9; O2SAT 95–97; BMI 30.6
--- NOTE | 2019-11-09 07:06 | HP.PCM_ITS ---
Problem List (1) Screen for colon cancer Status: Acute History and Physical Date of Admission: 11/09/19 Intake Vital Signs 11/01/19 Height 6 ft 11/01/19 Weight: 234 lb 11/01/19 BMI 31.7 11/01/19 BP 132/78 H 11/01/19 Blood Pressure Location Rt brachial 11/01/19 Position Sitting 11/01/19 Respiration 18 11/01/19 Pulse 82 11/01/19 Pulse Source Monitor 11/01/19 Temp 98.4 F 11/01/19 Temp Source Oral 11/01/19 Pulse Oximetry (%) 97 11/01/19 Oxygen Delivery Method room air Intake Visit Reasons: Cscope Consult Chief Complaint: colonoscopy Digital Printer Operator Required: No Is patient in pain?: No Allergies No Known Allergies Allergy (Verified 11/01/19 13:23) Medications multivitamin 1 tab PO QAM 05/17/18 [History Confirmed 11/01/19] diltiazem HCl 120 mg capsule,extended release 24 hr 120 mg PO BID #60 cap 05/14/19 [Rx Confirmed 11/01/19] cholecalciferol (vitamin D3) 25 mcg (1,000 unit) capsule 1,000 unit PO DAILY 05/22/19 [History Confirmed 11/01/19] apixaban 5 mg tablet 5 mg PO BID #180 tab 05/24/19 [Rx Confirmed 11/01/19] furosemide 20 mg tablet 20 mg PO BID #180 tab 06/19/19 [Rx Confirmed 11/01/19] metoprolol succinate 100 mg tablet,extended release 24 hr 50 mg PO BID #90 tab 06/19/19 [Rx Confirmed 11/01/19] lisinopril 2.5 mg tablet 2.5 mg PO QDAY #90 tab 09/03/19 [Rx Confirmed 11/01/19] [facility] Medical History Leukocytosis (Chronic) Thrombocytosis (Chronic) Myeloproliferative neoplasm (Chronic) Obesity (BMI 30.0-34.9) (Chronic) Cardiac arrest with ventricular fibrillation (Acute) Chronic combined systolic and diastolic CHF (congestive heart failure) (Acute) Nicotine dependence (Chronic) Non-ischemic cardiomyopathy (Chronic) Obstructive sleep apnea (Acute) Persistent atrial fibrillation (Chronic) Ventricular fibrillation (Acute) Surgical History History of radiofrequency ablation procedure for cardiac arrhythmia (Resolved) Presence of automatic implantable cardioverter-defibrillator (Acute 03/31/18) History of left heart catheterization (Resolved 03/28/18) Family History (Updated 11/01/19 @ 13:21 by Janette Jauregui) Mother Heart disease SSS Father Arthritis Diabetes Heart disease Social History (Updated 11/02/19 @ 17:30 by Raoul Yuan MD) Smoking Status: Former smoker how long ago did patient quit smokin, 1.5ppd second hand exposure: Yes HPI HPI HPI: JONELLE RINCON, is a 64 M who presents to the office today for HPI HPI Surgical H&P: Yes HPI: JONELLE RINCON, is a 64 M who presents to the office today for Screening colonoscopy. The patient reports his last colonoscopy was 10 years ago. He is not have any blood in his stool or abdominal pain. He is on Eliquis and does have a pacemaker. He said he had a cardiac arrest but this was not deemed a myocardial infarction. ROS General General: Yes fatigue; no weight change, appetite, colon cancer, breast cancer or weakness HEENT HEENT: No difficulty swallowing, eye injury, eye surgery, swollen glands or hoarseness Endo Endocrine: No thyroid disease, diabetes mellitus, thyroid cancer, Hair loss, heat intolerance or cold intolerance Skin Skin: No rash or changing moles Breast Breast: No left breast lump, right breast lump, nipple discharge, breast pain, abnormal mammogram, abnormal US or breast enlargement Musc Musculoskeletal: Yes arthritis and gout; no back problems, rheumatoid arthritis or joint pain Cardio Cardiovascular: Yes pacemaker and atrial fibrillation; no murmur, heart disease, high blood pressure, heart attack, heart stent, palpitations, shortness of breat with exertion or chest pain Psych Psychiatric: No depression, anxiety or hearing voices Resp Respiratory: Yes shortness of breath, Yes sleep apnea, Yes cough, No COPD, No asthma, No emphysema, No wheezing Gastro Gastrointestinal: No abdominal pain, No nausea or vomiting, No diarrhea, No constipation, No blood in stool, No acid reflux, No hemorrhoids, No ulcers, No gallbladder problem, No black,tarry stools David Hematologic: Yes blood thinners, No blood disorders, No bleeding, No anemia, No blood clots Neuro Neurologic: No system reviewed and no additional complaints, except as docu, No as per HPI, No abnormal walking, No abnormal hearing, No abnormal movements, No abnormal speech, No behavioral changes, No burning sensations, No confusion, No seizure-like activity, No unsteadiness, No dizziness, No localized weakness, No frequent falls, No headache(s), No lack of coordination, No loss of vision, No memory loss, No numbness, No other visual disturbances, No radiating pain, No restless legs, No sensory deficit, No fainting, No tingling, No tremor(s), No weakness, No other Exam Const General: cooperative Orientation: alert, oriented x3 Chest Breast Palpation: No nipple discharge Resp Effort & Inspection: normal respiratory effort Auscultation: clear to auscultation bilaterally Cardio Rate: regular rate Rhythm: regular rhythm Heart Sounds: no murmurs GI Inspection: non-distended Palpation: soft, nontender Assessment & Plan Problems 1. Screen for colon cancer Z12.11 Plan Patient is here for screening colonoscopy. He reports his last colonoscopy was 10 years ago and he is due. He is not having any abdominal pain or blood in his stool. He has been asked to stop his blood thinner for 5 days and we will get approval from his podiatric technician. I explained endoscopy in detail to the patient. I explained the risks including but not limited to stroke or heart attack with anesthesia, perforation of the GI tract, bleeding, infection. I explained that any of these could necessitate further emergency surgery. The patient understands and all questions were answered sufficiently. The patient wishes to proceed with procedure. Raoul Yuna MD Pager: [facility] [address] [place] [address], [address] [place] [address] Office:
--- NOTE | 2019-11-09 07:42 | OP.CCLET_ITS ---
11/09/2019 Kai Dean Md Re : Colonoscopy procedure for Garrick Dillard Dear Dianne This procedure was performed on Saturday, November 09, 2019. My impressions and recommendations are as follows: Impressions : - The entire examined colon is normal on direct and retroflexion views. - No specimens collected. Recommendations : - Discharge patient to home. - Resume previous diet. - Continue present medications. - Resume Eliquis (apixaban) at prior dose today. - Repeat colonoscopy in 10 years for screening purposes. My findings are described in the full procedure note, which is enclosed. If I can be of further assistance, please feel free to contact me at Doctor phone number(s): , Work: . Sincerely, Raoul Yuan MD 11/09/2019 7:41:45 AM This report has been signed electronically.
--- NOTE | 2019-11-09 07:42 | OP.COLON_ITS ---
Patient Name: Garrick Dillard Procedure Date: 11/09/2019 7:02 AM Date of : 1955 Age: 64 Procedure: Colonoscopy Indications: Screening for colorectal malignant neoplasm Providers: Raoul Yuan MD Referring MD: Kai Dean Md Medicines: Monitored Anesthesia Care Patient Profile: This is a 64 year old male. Refer to note in patient chart for documentation of history and physical. Last Colonoscopy: none. The patient's first colonoscopy is today. Complications: No immediate complications. Procedure: Pre-Anesthesia Assessment: - Prior to the procedure, a History and Physical was performed, and patient medications and allergies were reviewed. The patient's tolerance of previous anesthesia was also reviewed. The risks and benefits of the procedure and the sedation options and risks were discussed with the patient. All questions were answered, and informed consent was obtained. Prior Anticoagulants: The patient has taken Eliquis (apixaban), last dose was 2 days prior to procedure. After reviewing the risks and benefits, the patient was deemed in satisfactory condition to undergo the procedure. After I obtained informed consent, the scope was passed under direct vision. Throughout the procedure, the patient's blood pressure, pulse, and oxygen saturations were monitored continuously. The Colonoscope was introduced through the anus and advanced to the cecum, identified by appendiceal orifice and ileocecal valve. The colonoscopy was performed without difficulty. The patient tolerated the procedure well. The quality of the bowel preparation was good. Scope In: 7:27:37 AM Scope Withdrawal Time 0 hours 6 minutes 10 seconds Scope Out: 7:38:32 AM Total Procedure Duration Time 0 hours 10 minutes 55 seconds Findings: The entire examined colon appeared normal on direct and retroflexion views. Impression: - The entire examined colon is normal on direct and retroflexion views. - No specimens collected. Recommendation: - Discharge patient to home. - Resume previous diet. - Continue present medications. - Resume Eliquis (apixaban) at prior dose today. - Repeat colonoscopy in 10 years for screening purposes. Procedure Code(s): --- Professional --- 29538, Colonoscopy, flexible; diagnostic, including collection of specimen(s) by brushing or washing, when performed (separate procedure) Diagnosis Code(s): --- Professional --- Z12.11, Encounter for screening for malignant neoplasm of colon CPT copyright 2017 [employer]. All rights reserved. The codes documented in this report are preliminary and upon hydraulic plumber helper review may be revised to meet current compliance requirements. Raoul Yuan MD 11/09/2019 7:41:45 AM This report has been signed electronically. Number of Addenda: 0 Note Initiated On: 11/09/2019 7:02 AM
== END 2019-11-09 08:31 | disposition home or self-care (01) ==
LOC: EN 06:27 → AC 06:28
PROVIDERS: PCP Family Medicine; Referring Provider Family Medicine; Visit Provider Surgery
PROC: 0DJD8ZZ Inspection of Lower Intestinal Tract, Via Natural or Artificial Opening Endoscopic (ICD-10-PCS; CPT 45378; principal; 2019-11-09 07:25)
DX: Z12.11 Encounter for screening for malignant neoplasm of colon (principal); I50.42 Chronic combined systolic (congestive) and diastolic (congestive) heart failure; I42.8 Other cardiomyopathies; G47.33 Obstructive sleep apnea (adult) (pediatric); I48.19 Other persistent atrial fibrillation; I49.01 Ventricular fibrillation; Z86.74 Personal history of sudden cardiac arrest; E66.9 Obesity, unspecified; Z68.31 Body mass index [BMI] 31.0-31.9, adult; Z79.02 Long term (current) use of antithrombotics/antiplatelets; Z79.899 Other long term (current) drug therapy; Z87.891 Personal history of nicotine dependence; Z95.0 Presence of cardiac pacemaker
CPT/HCPCS: 45378; J7120

== ENCOUNTER → 2020-03-24 | Outpatient (CLI) | payer MEDICAID, SELFPAY ==
[2020-02-21 11:25] VITALS: BMI 30.5
== END | disposition home or self-care (01) ==
LOC: LAB 14:29
PROVIDERS: PCP Family Medicine; Visit Provider Internal Medicine Medical Oncology
DX: D47.1 Chronic myeloproliferative disease (principal)

== ENCOUNTER → 2020-04-21 | Outpatient (CLI) | payer MEDICAID, SELFPAY ==
[2020-03-24 15:10] VITALS: BMI 31.4
[2020-04-21 12:58] LABS: Erythrocyte Sedimentation Rate 12 mm/hr (0-20)
[2020-04-21 13:26] LABS: Anion Gap 6 (5-15); BUN 18 mg/dL (7-18); BUN/Creat Ratio 14.3 RATIO (10-20); CRP < 2.90 mg/L (0.0-3.0); Calcium,Total 8.7 mg/dL (8.5-10.1); Chloride 105 mmol/L (98-107); Creatinine, Serum 1.26 mg/dL (0.70-1.30); EST Glomerular Filtration Rate 61 mL/min (>60); Est Glom Filt Rate - Afr Amer 74 mL/min (>60); Glucose 92 mg/dL (74-106); Magnesium 2.2 mg/dL (1.6-2.6); Potassium 4.2 mmol/L (3.5-5.1); Rheumatoid Factor < 10.0 IU/mL (<15); Sodium Level 138 mmol/L (136-145)
[2020-04-22 15:41] LABS: ANTINUCLEAR ANTIBODIES DIRECT Negative (Negative)
== END | disposition home or self-care (01) ==
LOC: MFPLAB 09:48
PROVIDERS: PCP Family Medicine; Visit Provider Family Medicine
DX: M25.50 Pain in unspecified joint (principal); R42 Dizziness and giddiness
CPT/HCPCS: 36415; 80048; 83735; 84443; 85652; 86038; 86140; 86431

== ENCOUNTER → 2020-05-01 | Outpatient (CLI) | payer MEDICAID, SELFPAY ==
[2020-03-24 15:10] VITALS: BMI 31.4
--- NOTE | 2020-05-01 16:46 | CT_ITS ---
STUDY: CT BRAIN WITHOUT CONTRAST REASON FOR EXAM: Male, 64 years old. DIZZINESS RADIATION DOSAGE (If Supplied By Facility): CTDIvol = ( 44.99 ) mGy, DLP = ( 829.85 ) mGycm TECHNIQUE: Transaxial CT imaging of the brain was performed without administration of intravenous contrast material. Individualized dose optimization techniques were used for this CT. COMPARISON: No relevant priors. FINDINGS: Normal soft tissue structures. Normal calvarium. There is mild cerebral atrophy with widening of the extra-axial spaces and ventricular dilatation. Normal white matter tracts of the cerebral hemispheres. Normal basal ganglia and thalami. Normal brainstem. Normal cerebellum. There is no intracranial hemorrhage. There are no findings of an acute ischemic infarction. Normal visualized paranasal sinuses. CT/Brain/Head without Contrast IMPRESSION: Chronic involutional changes of the brain. Electronically Signed: German Toribio MD at 17:11 EDT , Service support ,
== END | disposition home or self-care (01) ==
LOC: CT 16:44
PROVIDERS: PCP Family Medicine; Referring Provider Family Medicine; Visit Provider Family Medicine
DX: R42 Dizziness and giddiness (principal)
CPT/HCPCS: 70450

== ENCOUNTER → 2020-06-19 | Outpatient (CLI) | payer MEDICAID, SELFPAY ==
[2020-03-24 15:10] VITALS: BMI 31.4
[2020-06-19 12:39] LABS: Cholesterol 125 mg/dL (200); High Density Lipoprotein 22 mg/dL; Triglycerides 244 mg/dL; Very Low Density Lipoprotein 49 mg/dL (5-40)
== END | disposition home or self-care (01) ==
LOC: MFPLAB 10:12
PROVIDERS: PCP Family Medicine; Referring Provider Family Medicine; Visit Provider Family Medicine
DX: Z13.220 Encounter for screening for lipoid disorders (principal)
CPT/HCPCS: 36415; 80061

== ENCOUNTER → 2020-10-31 12:05 | Outpatient (CLI) | payer MEDICAID, SELFPAY ==
[2020-09-22 14:12] VITALS: BMI 30.9
--- NOTE | 2020-10-31 12:17 | RAD_ITS ---
STUDY: X-RAY - RIGHT KNEE REASON FOR EXAM: Right knee pain, possible gout. TECHNIQUE: 4 view(s) of the knee. COMPARISON: None. FINDINGS: Normal visualized distal femur. Normal visualized proximal tibia and fibula. Normal proximal tibiofibular articulation. Normal medial femorotibial compartment. Normal lateral femorotibial compartment. Normal patellofemoral articulation. There is mild patellar enthesopathy. RAD/Knee 4 or More Views IMPRESSION: Mild patellar enthesopathy. Otherwise, unremarkable x-ray examination of the right knee without demonstrated osseous erosions. Electronically Signed: Anselmo Owens MD at 14:09 EST Tel , Service support ,
== END ==
PROVIDERS: PCP Family Medicine; Referring Provider Family Medicine; Visit Provider Family Medicine
DX: M25.561 Pain in right knee (principal)
CPT/HCPCS: 73564

== ENCOUNTER → 2020-11-24 10:42 | Outpatient (CLI) | payer MEDICAID, SELFPAY ==
[2020-11-11 10:00] VITALS: BMI 30.7
--- NOTE | 2020-11-24 10:43 | ECHOD_ITS ---
Reason For Study: DYSPNEA Procedure This was a 2D Doppler, Color Flow transthoracic echocardiogram. The study was technically limited. Exam performed in department. Left Ventricle Normal LV size. The estimated ejection fraction is 40 %. Diastolic function is indeterminate. There is mild to moderate global hypokinesis of the left ventricle. Right Ventricle Normal RV size. ICD or pacer leads identified within the right ventricle. Normal systolic function. Mitral Valve Normal mitral valve. Mild (1+) eccentric mitral valve insufficiency. Tricuspid Valve Normal tricuspid valve. Mild (1+) tricuspid valve insufficiency. Pulmonary artery systolic pressure is 35 mmHg. Aortic Valve Trisinus/trileaflet aortic valve. Pulmonic Valve The pulmonic valve is not well visualized. Great Vessels Normal aortic root. The pulmonary artery is normal size. No collapse of the inferior vena cava. Medication Definity deferred- PT HAS HX OF DEFINITY REACTION w/ severe flank pain. MMode/2D Measurements & Calculations LVIDd: 4.3 cm IVSd: 1.1 cm Ao root diam: 3.8 cm LVIDs: 3.6 cm LVPWd: 1.1 cm RVDd: 5.4 cm FS: 15.4 % LAV(MOD-bp): 160.3 ml LA A4 area: 40.5 cm2 LA dimension(2D): 5.1 cm LAV(MOD-bp) Indexed: 71.3 ml/m2 LAV(MOD-sp2): 134.9 ml LAV(MOD-sp4): 168.2 ml RA A4 area: 24.6 cm2 Time Measurements MV dec time: 0.23 sec Doppler Measurements & Calculations MV E max deisy: 74.4 cm/sec Ao V2 max: 87.3 cm/sec LV V1 max: 67.4 cm/sec Ao max P.1 mmHg LV V1 max P.8 mmHg PA V2 max: 100.4 cm/sec TR max deisy: 282.3 cm/sec TR max P.9 mmHg Interpretation Summary Normal RV size. The estimated ejection fraction is 40 %. Normal LV size. Diastolic function is indeterminate. The study was technically limited. The study was technically difficult. Ordering Physician: Erlin Michel Referring Physician: KAT MERA Performed By: Jonna Prescott, RDCS, RVT
== END ==
PROVIDERS: PCP Family Medicine; Referring Provider Internal Medicine Cardiovascular Disease; Visit Provider Internal Medicine Cardiovascular Disease
DX: I42.8 Other cardiomyopathies (principal); R06.00 Dyspnea, unspecified; R06.02 Shortness of breath
CPT/HCPCS: 93306

== ENCOUNTER → 2021-02-23 10:06 | Outpatient (CLI) | payer MEDICAID, SELFPAY ==
[2020-11-11 10:00] VITALS: BMI 30.7
[2021-02-23 12:42] LABS: ALB/GLOB Ratio 1.3 RATIO (0.9-2.4); AST(SGOT) 26 U/L (15-37); Alanine Aminotransfer ALT/SGPT 30 U/L (16-61); Albumin, Serum 4.5 g/dL (3.2-5.0); Alkaline Phosphatase 80 U/L (45-117); Anion Gap 6 (5-15); BUN 19 mg/dL (7-18); BUN/Creat Ratio 16.4 RATIO (10-20); Calcium,Total 8.8 mg/dL (8.5-10.1); Chloride 107 mmol/L (98-107); Creatinine, Serum 1.16 mg/dL (0.70-1.30); EST Glomerular Filtration Rate 67 mL/min (>60); Est Glom Filt Rate - Afr Amer 81 mL/min (>60); Globulin 3.5 g/dL (2.2-4.2); Glucose 94 mg/dL (74-106); Potassium 4.6 mmol/L (3.5-5.1); Sodium Level 138 mmol/L (136-145)
== END ==
PROVIDERS: PCP Family Medicine; Referring Provider Family Medicine; Visit Provider Family Medicine
DX: M10.9 Gout, unspecified (principal)
CPT/HCPCS: 36415; 80053; 84550

== ENCOUNTER → 2021-08-28 08:23 | Outpatient (CLI) | payer MEDICAID, SELFPAY ==
[2021-08-28 10:33] LABS: Anion Gap 5 (5-15); BUN 12 mg/dL (7-18); BUN/Creat Ratio 9.2 RATIO (10-20); Calcium,Total 8.4 mg/dL (8.5-10.1); Chloride 105 mmol/L (98-107); Cholesterol 107 mg/dL (200); EST Glomerular Filtration Rate 59 mL/min (>60); Est Glom Filt Rate - Afr Amer 71 mL/min (>60); Glucose 98 mg/dL (74-106); High Density Lipoprotein 22 mg/dL; PSA,Total - Annual Screen 0.47 ng/mL (0.00-4.00); Potassium 4.2 mmol/L (3.5-5.1); Sodium Level 138 mmol/L (136-145); Triglycerides 202 mg/dL; Very Low Density Lipoprotein 40 mg/dL (5-40)
== END ==
PROVIDERS: PCP Nurse Practitioner Family; Referring Provider Nurse Practitioner Family; Visit Provider Nurse Practitioner Family
DX: Z12.5 Encounter for screening for malignant neoplasm of prostate (principal); Z13.1 Encounter for screening for diabetes mellitus; Z13.220 Encounter for screening for lipoid disorders
CPT/HCPCS: 36415; 80048; 80061; 84153; G0103

== ENCOUNTER → 2021-10-13 | Outpatient (CLI) | payer MEDICAID, SELFPAY | END | disposition home or self-care (01) | LOC: LABSPEC 14:53 | PROVIDERS: PCP Family Medicine; Visit Provider Registered Nurse | DX: U07.1 COVID-19 (principal); J98.8 Other specified respiratory disorders | CPT/HCPCS: 87635; 87804; U0005; U0003 ==

== ENCOUNTER → 2022-02-25 | Outpatient (CLI) | payer MEDICARE, MEDICAID, SELFPAY ==
[2022-02-25 12:43] LABS: Mucous, Urine 0 SEEN /hpf (<or=2+); Red Blood Cells-Urine 0 SEEN /hpf (0-5); Squamous Epithelial Cells - UA 0 SEEN /hpf (0-5); White Blood Cells 0 SEEN /hpf (0-5)
[2022-02-25 15:19] LABS: Color, Urine Yellow (Yellow); Glucose, Dipstick Normal (Normal); Ketone-Dipstick 5 mg/dl (Negative); Leukocyte Esterase-Dipstick 25 /ul (Negative); Nitrite-Dipstick Negative (Negative); Occult Blood-Urine Negative /ul (Negative); Protein-Dipstick Negative (Negative); Specific Gravity, Urine 1.015 (1.002-1.030); Urine Bilirubin Dipstick Negative (Negative); Urine Clarity Clear (Clear); Urine Urobilinogen Normal (Normal)
[2022-02-25 15:19] LABS: Absolute Lymphocyte Count 2.44 X10^3/uL (0.83-4.51); Absolute Neutrophil Count 12.9 X10^3/uL (2.0-7.7); Basophil# 0.21 X10^3/uL; Basophil% 1.2 % (0-1); Eosinophil# 0.28 X10^3/uL; Eosinophils% 1.6 % (0-5); Hematocrit 43.5 % (40-54); Hemoglobin 13.9 g/dL (13.0-16.5); Lymphocyte # 2.44 X10^3/ul (0.83-4.51); Lymphocyte % 13.8 % (19-41); Mean Corpuscular Hgb 30.1 pg (27.0-32.0); Mean Corpuscular Volume 94.2 fL (80-94); Mean Platelet Vol. 11.7 fl (6.2-12.0); Monocyte# 1.73 X10^3/uL; Monocyte% 9.8 % (0-10); NRBC Flagged by Analyzer 0 % (0-5); Neutrophil # 12.88 X10^3/uL (2.7-7.7); Neutrophil % 72.5 % (47-70); POSITIVE DIFFERENTIAL YES; Platelet Count 514 K/mm3 (150-450); RBC Distribution Width CV 16.1 % (11.6-14.6); RBC Distribution Width SD 56.2 fl (35.1-43.9); Red Blood Count 4.62 M/mm3 (4.6-6.2); White Blood Count 17.7 K/mm3 (4.4-11.0)
[2022-02-25 15:25] LABS: Differential Indicated SCAN CRITERIA MET
[2022-02-25 15:36] LABS: Bacteria RARE /hpf (None Seen)
[2022-02-25 15:42] LABS: Vitamin B12 1196 pg/mL (211-911); Vitamin D,25 Hydroxy 37.3 ng/mL
[2022-02-25 15:44] LABS: ALB/GLOB Ratio 1.1 RATIO (0.9-2.4); AST(SGOT) 29 U/L (15-37); Alanine Aminotransfer ALT/SGPT 34 U/L (16-61); Alkaline Phosphatase 86 U/L (45-117); Anion Gap 7 (5-15); BUN 19 mg/dL (7-18); Calcium,Total 8.9 mg/dL (8.5-10.1); Chloride 106 mmol/L (98-107); Cholesterol 108 mg/dL (200); Creatinine, Serum 1.19 mg/dL (0.70-1.30); EST Glomerular Filtration Rate 65 mL/min (>60); Est Glom Filt Rate - Afr Amer 79 mL/min (>60); Globulin 3.8 g/dL (2.2-4.2); Glucose 88 mg/dL (74-106); High Density Lipoprotein 20 mg/dL; Magnesium 2.2 mg/dL (1.6-2.6); Potassium 4.3 mmol/L (3.5-5.1); Protein, Total 7.8 g/dL (6.4-8.2); Sodium Level 139 mmol/L (136-145); Thyroid Stim Hormone (TSH) 3.74 uIU/mL (0.358-3.74); Triglycerides 241 mg/dL; Uric Acid 5.9 mg/dL (3.5-7.2); Very Low Density Lipoprotein 48 mg/dL (5-40)
[2022-02-25 16:45] LABS: Anisocytosis 1+; Ovalocyte 1+
[2022-02-26 13:25] LABS: Pathologist Review Reviewed
[2022-03-23 16:43] LABS: VITAMIN B6 48.5 ug/L (3.4-65.2); Vitamin B1, Thiamine 244.9 nmol/L (66.5-200.0)
== END | disposition home or self-care (01) ==
PROVIDERS: PCP Family Medicine; Referring Provider Family Medicine; Visit Provider Family Medicine
DX: I48.0 Paroxysmal atrial fibrillation (principal); E55.9 Vitamin D deficiency, unspecified; I10 Essential (primary) hypertension; M10.9 Gout, unspecified; E53.9 Vitamin B deficiency, unspecified
CPT/HCPCS: 36415; 80053; 80061; 81001; 82306; 82607; 83735; 84207; 84425; 84443; 84550; 85025

== ENCOUNTER → 2022-04-02 | Outpatient (CLI) | payer MEDICARE, MEDICAID, SELFPAY ==
--- NOTE | 2022-04-02 12:38 | ECHOD_ITS ---
Version 2 Reason For Study: AFib/Flutter Procedure This was a 2D Doppler, Color Flow transthoracic echocardiogram. The study was technically difficult. Exam performed in department. Left Ventricle Normal LV size. Unable to assess diastolic dysfunction due to arrhythmia. The estimated ejection fraction is 53 %. Left ventricular systolic function is lower limits of normal. No regional wall motion abnormalities noted. Right Ventricle Normal RV size. ICD or pacer leads identified within the right ventricle. Normal systolic function. Atria The left atrium is severely enlarged. Normal right atrium. Mitral Valve Normal mitral valve. Mild (1+) eccentric mitral valve insufficiency. Tricuspid Valve Normal tricuspid valve. Mild tricuspid valve insufficiency. Pulmonary artery systolic pressure is 28 mmHg. Aortic Valve Trisinus/trileaflet aortic valve. Pulmonic Valve Normal pulmonic valve. Great Vessels Normal aortic root. The pulmonary artery is normal size. Normal inferior vena cava. Pericardium/Pleural No pericardial effusion. Medication DEFINITY DEFERRED: Patient has a Hx of reaction with severe flank pain. MMode/2D Measurements & Calculations LVIDd: 5.0 cm IVSd: 0.99 cm Ao root diam: 3.3 cm LVIDs: 3.6 cm LVPWd: 1.2 cm LA dimension: 5.1 cm RVDd: 4.8 cm FS: 27.5 % LAV(MOD-bp): 138.1 ml LA A4 area: 37.6 cm2 RA A4 area: 19.2 cm2 LAV(MOD-bp) Indexed: 61.7 ml/m2 LAV(MOD-sp2): 115.4 ml LAV(MOD-sp4): 147.2 ml Doppler Measurements & Calculations MV E max deisy: 65.5 cm/sec Ao V2 max: 87.4 cm/sec LV V1 max: 64.6 cm/sec Ao max P.1 mmHg LV V1 max P.7 mmHg MR max deisy: 487.9 cm/sec PA V2 max: 80.9 cm/sec TR max deisy: 243.1 cm/sec MR max P.2 mmHg TR max P.6 mmHg MR mean deisy: 372.3 cm/sec MR mean P.7 mmHg MR VTI: 171.9 cm ECHO/Echo Complete Interpretation Summary Normal LV size. Mild (1+) eccentric mitral valve insufficiency. Pulmonary artery systolic pressure is 28 mmHg. The left atrium is severely enlarged. Unable to assess diastolic dysfunction due to arrhythmia. Left ventricular systolic function is lower limits of normal. The estimated ejection fraction is 53 %. The study was technically difficult. Ordering Physician: Erlin Michel Referring Physician: Kai Wilson Performed By: Eliot Pina RCS
== END | disposition home or self-care (01) ==
LOC: CVS 12:35
PROVIDERS: PCP Family Medicine; Referring Provider Internal Medicine Cardiovascular Disease; Visit Provider Internal Medicine Cardiovascular Disease
DX: I42.8 Other cardiomyopathies (principal); I48.91 Unspecified atrial fibrillation
CPT/HCPCS: 93306

== ENCOUNTER → 2022-07-21 | Outpatient (CLI) | payer MEDICARE, SELFPAY ==
[2022-07-21 13:40] LABS: Mucous, Urine 0 SEEN /hpf (<or=2+); Red Blood Cells-Urine 0 SEEN /hpf (0-5); White Blood Cells 0 SEEN /hpf (0-5)
[2022-07-21 15:19] LABS: Color, Urine Straw (Yellow); Glucose, Dipstick Normal (Normal); Ketone-Dipstick Negative (Negative); Leukocyte Esterase-Dipstick Negative /ul (Negative); Nitrite-Dipstick Negative (Negative); Occult Blood-Urine Negative /ul (Negative); Protein-Dipstick Negative (Negative); Urine Bilirubin Dipstick Negative (Negative); Urine Clarity Clear (Clear); Urine Urobilinogen Normal (Normal); Urine pH 6.5 (5.0 - 8.0)
[2022-07-21 15:33] LABS: Absolute Lymphocyte Count 2.32 X10^3/uL (0.83-4.51); Absolute Neutrophil Count 11.6 X10^3/uL (2.0-7.7); Bacteria RARE /hpf (None Seen); Basophil# 0.24 X10^3/uL; Basophil% 1.5 % (0-1); Eosinophil# 0.31 X10^3/uL; Eosinophils% 1.9 % (0-5); Hematocrit 42.3 % (40-54); Hemoglobin 13.6 g/dL (13.0-16.5); Lymphocyte # 2.32 X10^3/ul (0.83-4.51); Lymphocyte % 14.2 % (19-41); Mean Corp Hgb Conc 32.2 g/dL (32-36); Mean Corpuscular Hgb 30.8 pg (27.0-32.0); Mean Corpuscular Volume 95.7 fL (80-94); Mean Platelet Vol. 11.5 fl (6.2-12.0); Monocyte# 1.67 X10^3/uL; Monocyte% 10.2 % (0-10); NRBC Flagged by Analyzer 0 % (0-5); Neutrophil # 11.62 X10^3/uL (2.7-7.7); Neutrophil % 71.1 % (47-70); POSITIVE DIFFERENTIAL YES; Platelet Count 479 K/mm3 (150-450); RBC Distribution Width CV 16.1 % (11.6-14.6); RBC Distribution Width SD 56.6 fl (35.1-43.9); Red Blood Count 4.42 M/mm3 (4.6-6.2); Squamous Epithelial Cells - UA 0-5 SEEN /hpf (0-5); White Blood Count 16.3 K/mm3 (4.4-11.0)
[2022-07-21 15:40] LABS: Differential Indicated SCAN CRITERIA MET
[2022-07-21 15:55] LABS: Vitamin D,25 Hydroxy 40.7 ng/mL
[2022-07-21 16:00] LABS: AST(SGOT) 28 U/L (15-37); Alanine Aminotransfer ALT/SGPT 35 U/L (16-61); Alkaline Phosphatase 80 U/L (45-117); Anion Gap 6 (5-15); BUN 16 mg/dL (7-18); BUN/Creat Ratio 12.9 RATIO (10-20); Calcium,Total 9.1 mg/dL (8.5-10.1); Chloride 105 mmol/L (98-107); Cholesterol 114 mg/dL (200); Creatinine, Serum 1.24 mg/dL (0.70-1.30); EST Glomerular Filtration Rate 62 mL/min (>60); Est Glom Filt Rate - Afr Amer 75 mL/min (>60); Glucose 66 mg/dL (74-106); High Density Lipoprotein 20 mg/dL; Magnesium 2.3 mg/dL (1.6-2.6); Potassium 4.4 mmol/L (3.5-5.1); Sodium Level 138 mmol/L (136-145); Triglycerides 335 mg/dL; Very Low Density Lipoprotein 67 mg/dL (5-40)
[2022-07-21 18:32] LABS: Platelet Estimate ADEQUATE (ADEQ)
[2022-07-21 18:33] LABS: Red Cell Morphology NORM C+C NORMAL (NORM C&C)
[2022-07-22 09:30] LABS: Pathologist Review Reviewed
== END | disposition home or self-care (01) ==
LOC: MFPLAB 13:38
PROVIDERS: PCP Family Medicine; Referring Provider Family Medicine; Visit Provider Family Medicine
DX: R94.4 Abnormal results of kidney function studies (principal); I48.0 Paroxysmal atrial fibrillation; I10 Essential (primary) hypertension; M10.9 Gout, unspecified; E55.9 Vitamin D deficiency, unspecified
CPT/HCPCS: 36415; 80053; 80061; 81001; 82306; 83735; 84550; 85025

== ENCOUNTER → 2022-08-09 | Outpatient (CLI) | payer MEDICARE, MEDICAID, SELFPAY ==
--- NOTE | 2022-08-09 16:06 | RAD_ITS ---
EXAM: XR LUMBOSACRAL SPINE, 4 OR 5 VIEWS CLINICAL INDICATION: BACK INJURY TECHNIQUE: Frontal, lateral and bilateral oblique views of the lumbar spine. This report was created using [employer] report generation technology. COMPARISON: None. FINDINGS: VERTEBRAE: No unusual lytic or sclerotic lesions of bone. No acute or healing fracture or malalignment. No spondylolisthesis. Preservation of the normal lumbar lordosis. No significant facet arthropathy. DISC SPACES: Mild to moderate degenerative disease at L5-S1. VASCULATURE: Multiple phleboliths in the pelvis. GASTROINTESTINAL TRACT: Scattered stool and gas within colon. Included bowel gas pattern is non-obstructive. RAD/L/S Spine Min 4 Views IMPRESSION: No acute or healing fracture or malalignment. Electronically Signed: Santos Iraheta MD at 21:21 EDT ,
== END | disposition home or self-care (01) ==
PROVIDERS: PCP Family Medicine; Referring Provider Family Medicine; Visit Provider Family Medicine
DX: S39.92XA Unspecified injury of lower back, initial encounter (principal)
CPT/HCPCS: 72110

== ENCOUNTER → 2022-08-17 | Outpatient (CLI) | payer MEDICARE, MEDICAID, SELFPAY ==
--- NOTE | 2022-08-17 14:26 | MRI_ITS ---
STUDY: MRI LUMBAR SPINE WITHOUT CONTRAST REASON FOR EXAM: Male, 67 years old. Back injury, pain TECHNIQUE: Standardized fat and water weighted pulse sequences were obtained in the sagittal and axial planes. COMPARISON: X-ray 08/09/2022 FINDINGS: T12-L1: Normal endplates. Normal disc height, hydration and morphology. Normal bilateral facet joints. Normal central canal and bilateral lateral recesses. Normal bilateral intervertebral neural foramina. Normal lumbar lordosis. There is no substantial scoliosis. Normal conus medullaris that terminates at the L1. L1-2: Normal endplates. Normal disc height, hydration and morphology. Normal bilateral facet joints. Normal central canal and bilateral lateral recesses. Normal bilateral intervertebral neural foramina. L2-3: Normal endplates. Normal disc height, hydration and morphology. Normal bilateral facet joints. Normal central canal and bilateral lateral recesses. Normal bilateral intervertebral neural foramina. L3-4: Normal endplates. Normal disc height, hydration and morphology. Normal bilateral facet joints. Normal central canal and bilateral lateral recesses. Normal bilateral intervertebral neural foramina. L4-5: Mild broad disc protrusion asymmetric to the right produces mild spinal stenosis with moderate right lateral recess stenosis and moderate right neural foraminal stenosis. L5-S1: 2 mm retrolisthesis of L5 on S1 with a mild broad disc protrusion produces moderate spinal stenosis and moderate bilateral neural foraminal stenosis. Normal visualized sacral ala. Mild friction related edema of the posterior subcutaneous fat. MRI/Spine Lumbar (Routine) IMPRESSION: Multilevel degenerative changes, as described above. Electronically Signed: Ted Hendesron MD at 18:14 EDT ,
[2022-08-17 15:10] VITALS: BP 128/75; PULSE 81; RESP 18; O2SAT 98
[2022-08-17 15:25] VITALS: BP 112/91; PULSE 103; RESP 18; O2SAT 95
== END | disposition home or self-care (01) ==
LOC: MRI 14:26
PROVIDERS: PCP Family Medicine; Visit Provider Family Medicine
DX: S39.92XA Unspecified injury of lower back, initial encounter (principal)
CPT/HCPCS: 72148

== ENCOUNTER → 2022-09-01 | Outpatient (CLI) | payer MEDICARE, SELFPAY | END | disposition home or self-care (01) | LOC: MFPLAB 09:51 | PROVIDERS: PCP Family Medicine; Referring Provider Family Medicine; Visit Provider Family Medicine | DX: Z12.5 Encounter for screening for malignant neoplasm of prostate (principal) | CPT/HCPCS: 36415; 84153; G0103 ==

== ENCOUNTER → 2022-09-13 | Outpatient (CLI) | payer MEDICARE, SELFPAY ==
--- NOTE | 2022-09-13 13:46 | CT_ITS ---
STUDY: LOW DOSE CT LUNG CANCER SCREENING REASON FOR EXAM: Male, 67 years old. 2 pack per day smoker x20 years, quit 10 years ago RADIATION DOSAGE (If Supplied By Facility): CTDIvol = ( 4.02 ) mGy, DLP = ( 144.96 ) mGycm TECHNIQUE: No contrast was administered. Low dose technique was utilized (average mAS-38 and kVp 120). 1.25 mm axial source images with a slice interval of 1.25-mm were reconstructed in lung windows. 2.5 mm axial source images with a slice interval of 2.5-mm were reconstructed in lung windows. 5.0 mm axial source images with a slice interval of 5.0-mm were reconstructed in soft tissue windows. COMPARISON: None. FINDINGS: Lung windows show the lungs to be normally expanded. No organized infiltrate, suspicious noncalcified mass or nodule. Soft tissue windows show normal-appearing thyroid gland. No suspicious adenopathy. Pacer leads seen along the base of the heart. No coronary artery calcifications noted. Limited cuts through the upper abdomen do not show suspicious abnormality. Bony structures show degenerative change. CT/Low Dose CT Lung Screening IMPRESSION: Lung-RADS category 2 - Continue annual screening with LDCT in 12 months. IMPORTANT NOTES FOR USE: ACR Lung-RADS Version 1.1 Assessment Categories Release Date: 2018 Category: Coded 0-4 bases on nodule(s) with highest degree of suspicion. Negative screen is defined as categories 1 and 2; a positive screen is defined as categories 3 and 4. Category 3 and 4A nodules that are unchanged on interval CT should be coded as category 2, and individuals returned to screening in 12 months. Category 4X: Category 3 or 4 nodules with additional imaging findings that increase the suspicion of lung cancer, such as spiculation, GGN that doubles in size in 1 year, enlarged lymph notes, etc. Category Modifiers: S (significant finding unrelated to lung cancer) Electronically Signed: Pee Mohamud MD at 8:34 EST ,
== END | disposition home or self-care (01) ==
LOC: CT 13:46
PROVIDERS: PCP Family Medicine; Visit Provider Family Medicine
DX: Z87.891 Personal history of nicotine dependence (principal)
CPT/HCPCS: 71271

== ENCOUNTER 2022-10-28 13:00 | Outpatient (RCR) | payer MEDICARE, MEDICAID, SELFPAY ==
--- NOTE | 2022-10-13 14:15 | HP.PTEVAL_ITS ---
Patient's Visit Information JONELLE RINCON is a 67 year old M referred to Physical Therapy by Dr. Shaina Zee MD with a diagnosis of Back and leg pain. Date of Evaluation: 10/13/22 Physical Therapist: Mars Castro DPT - Visit Plan Frequency: 2x /Week Duration: 4 Weeks Plan: Start with lumbar ROM, progressing into extension. Add in neutral spine core stability exercises progressing back to all recreational activities without limitations. - Subjective Pt. is here today for his initial evaluation with diagnosis of Back and leg pain. Pt. reports ~2 months ago he hurt his back while getting out of bed. Pt. reports ultimately seeing a surgeon who recommended pain management and potentially surgery if he did not progress. Pt. had his injection and has been getting much better as time has progressed. Pt. is now currently doing much better. He reports basically no back pain, but is still having some 'tingling' symptoms at his anterior thigh to his knee. He reports this is basically unchanging with positions. He reports being pleased with progression this far. Pt. has not got back to working out at this point in time, but has started a walking program with good results thus far. - Pain Lumbar spine Pain Intensity (Out of 10): 0 Pain Intensity Range: 0, 2 L anterior thigh Pain Intensity (Out of 10): 1 Pain Intensity Range: 0, 3 - Objective POSTURE: Pt. has decent posture in stance. Pt. has decent lumbar positioning, normal iliac crest heights. Pt. has slight increase in thoracic kyphosis. PALPATION: Pt. has no pain with palpation of BLEs. Pt. had mild symptoms at L side of L4/L5. No hypomobility noted throughout lumbar spine with spring testing. NEURO: Pt. has normal sensation to light and sharp touch throughout BLEs. Pt. has normal 2+ B Achilles and patellar DTR of BLEs. Pt. is able to rise on heels and toes without issues. ROM: LUMBAR SPINE: flexion min loss NE, ext mod loss NE, SB min loss B NE, rotation min loss B NE. Pt. has tight quads, hip flexors and HS bilat. No increase in pain with LE stretching. MMT: RLE: 5/5 throughout distal LE, 4+/5 R hip throughout. LLE: 5/5 throughout distal LEs, 4+/5 L hip throughout. Core strength: fair. GAIT: Pt. has normal gait pattern without increase in symptoms. He has normal stride length. No increase in symptoms. STAIRS: normal with 1 HR. - Balance/Special Test Scores Oswestry Low Back Score: 3 - Goals Goal 1:: LTG: Pt. to be I with HEP. Goal Time Frame: 4-6 Weeks Goal 2:: STG: Pt. to sleep with out increase in symptoms. Goal Time Frame: 2 Weeks Goal 3:: LTG: Pt. to have increased core strength and BLE strength to 5/5 throughout. Goal Time Frame: 4-6 Weeks Goal 4:: LTG: Pt. have no issues with walking program of 20+ minutes. Goal Time Frame: 4-6 Weeks Goal 5:: LTG: Pt. to resume all working out and recreational activities without increase in symptoms. Goal Time Frame: 4-6 Weeks Goal 6:: LTG: Pt. to have full lumbar ROM without increase in symptoms Goal Time Frame: 2-4 Weeks - Rehabilitation Potential Physical Therapy Diagnosis: Pt. has signs and symptoms consistent with LBP and L leg pain to the level of his knee. Pt. had what appears to be a disc derangement and has been progressively improving. He still has some symptoms in his anterior proximal L leg, but overall doing well. At this point in time I would like to work on progressive core stability and progressing back into daily and recreational activities. Rehabilitation Potential: Excellent - Anticipated Interventions Patient/Client Instruction: Educate patient on: Condition, Plan of Care, Risk Factors, Benefits of Fitness Program For the Purpose of:: To improve health and function, To foster healthy habits, To improve decision making, To facilitate caregiver knowledge, To improve self management, To prevent re-injury, To improve ability to perform tasks related to life management Therapeutic Exercise to Include: Strength training, Power training, Body mechanics, Postural training, Flexibilty training, Gait and locomotor training, Passive ROM, Active ROM, Dynamic Lumbar Stabilization, Karen Exercises For the Purpose of:: To decrease pain, To increase ROM, To improve nutrient delivery to tissue, To increase oxygenation perfusion, To improve muscle performance and motor function, To improve ability to perform ADL's, To increase tolerance to activity/condition/position, To improve performance and independence with ADL's, To decrease level of supervision to perform tasks, To decrease soft tissue restriction, To increase flexibility/ROM Thank you for the opportunity to evaluate your patient. For Medicare and Medicare HMO plans, please review the plan of care and approve it. It will need to be FAXED BACK to us at [phone] for Medicare purposes. For Medicare only, by signing this I certify the plan of care. Please let me know if there are questions or concerns regarding this plan of care. Physician Signature: Date:
--- NOTE | 2022-10-28 16:08 | HP.PTDCSUM ---
It has been my pleasure to treat JONELLE RINCON referred by Dr. Shaina Zee MD, with the diagnosis of Back and leg pain for a total of 5 visit(s). Discharge Date: 10/28/22 Please see the following information for a summary of their discharge status. Subjective: Pt. reports overall doing well. No major issues noted. He reports being about 90% better overall. No leg symptoms any more. Lumbar spine Pain Intensity (Out of 10): 1 L anterior thigh Pain Intensity (Out of 10): 0 % Improvement: 90 Objective/Function: Pt. continues to be a little bit tightness with trunk extension. Pt. overall has improved symptoms. No leg issues noted. Pt. pleased with progress. ROM: min loss with extension and flexion- no pain. No pain with rotation. MMT: normal strength throughout. PT. is back to gym exercises without limitations. Pt. is doing great. Goal 1:: LTG: Pt. to be I with HEP. Goal Progress: Goal Met Goal 2:: STG: Pt. to sleep with out increase in symptoms. Goal Progress: Goal Met Goal 3:: LTG: Pt. to have increased core strength and BLE strength to 5/5 throughout. Goal Progress: Goal Met Goal 4:: LTG: Pt. have no issues with walking program of 20+ minutes. Goal Progress: Goal Met Goal 5:: LTG: Pt. to resume all working out and recreational activities without increase in symptoms. Goal Progress: Goal Met Goal 6:: LTG: Pt. to have full lumbar ROM without increase in symptoms Goal Progress: Goal Met Plan: Pt. will be DC from PT at this point in time. Discharge Comments: Pt. has resumed all gym, ADL and recreational activities with minimal limtations. Pt. to be DC at this point in time. If there are questions or concerns regarding this patient's physical therapy, please feel free to call me at [phone]. Thank you for the referral of this patient. Sincerely, Mars Rojas Sipos, DPT Balance/Gait/Functional tests - Balance/Special Test Scores Oswestry Low Back Score: 2
== END 2022-10-28 19:00 | disposition home or self-care (01) ==
LOC: PT 13:00
PROVIDERS: PCP Family Medicine; Referring Provider Anesthesiology Pain Medicine; Visit Provider Anesthesiology Pain Medicine
DX: M54.9 Dorsalgia, unspecified (principal); M79.606 Pain in leg, unspecified
CPT/HCPCS: 97110; 97161

== ENCOUNTER → 2022-12-20 | Outpatient (CLI) | payer MEDICARE, MEDICAID, SELFPAY ==
[2022-12-20 08:38] LABS: Bacteria 0 SEEN /hpf (None Seen); Mucous, Urine 0 SEEN /hpf (<or=2+); Red Blood Cells-Urine 0 SEEN /hpf (0-5); Squamous Epithelial Cells - UA 0 SEEN /hpf (0-5); White Blood Cells 0 SEEN /hpf (0-5)
[2022-12-20 09:58] LABS: Absolute Neutrophil Count 15.5 X10^3/uL (2.0-7.7); Basophil# 0.26 X10^3/uL; Basophil% 1.3 % (0-1); Eosinophil# 0.34 X10^3/uL; Eosinophils% 1.7 % (0-5); Hematocrit 41.2 % (40-54); Hemoglobin 13.2 g/dL (13.0-16.5); Lymphocyte % 10.5 % (19-41); Mean Corpuscular Hgb 31.7 pg (27.0-32.0); Mean Corpuscular Volume 98.8 fL (80-94); Monocyte# 1.53 X10^3/uL; Monocyte% 7.7 % (0-10); NRBC Flagged by Analyzer 0 % (0-5); Neutrophil # 15.48 X10^3/uL (2.7-7.7); Neutrophil % 77.4 % (47-70); POSITIVE DIFFERENTIAL YES; Platelet Count 603 K/mm3 (150-450); RBC Distribution Width CV 15.9 % (11.6-14.6); RBC Distribution Width SD 56.8 fl (35.1-43.9); Red Blood Count 4.17 M/mm3 (4.6-6.2)
[2022-12-20 10:01] LABS: Color, Urine Yellow (Yellow); Glucose, Dipstick Normal (Normal); Ketone-Dipstick Negative (Negative); Leukocyte Esterase-Dipstick Negative /ul (Negative); Nitrite-Dipstick Negative (Negative); Occult Blood-Urine Negative /ul (Negative); Protein-Dipstick 15 mg/dl (Negative); Urine Bilirubin Dipstick Negative (Negative); Urine Clarity Clear (Clear); Urine Urobilinogen Normal (Normal)
[2022-12-20 10:05] LABS: Differential Indicated SCAN CRITERIA MET
[2022-12-20 10:28] LABS: Vitamin B12 749 pg/mL (211-911); Vitamin D,25 Hydroxy 31.7 ng/mL
[2022-12-20 10:34] LABS: ALB/GLOB Ratio 1.1 RATIO (0.9-2.4); AST(SGOT) 24 U/L (15-37); Alanine Aminotransfer ALT/SGPT 30 U/L (16-61); Alkaline Phosphatase 68 U/L (45-117); Anion Gap 6 (5-15); BUN 14 mg/dL (7-18); BUN/Creat Ratio 10.8 RATIO (10-20); Calcium,Total 9.1 mg/dL (8.5-10.1); Chloride 107 mmol/L (98-107); Cholesterol 114 mg/dL (200); EST Glomerular Filtration Rate 59 mL/min (>60); Est Glom Filt Rate - Afr Amer 71 mL/min (>60); Globulin 3.7 g/dL (2.2-4.2); Glucose 115 mg/dL (74-106); High Density Lipoprotein 26 mg/dL; PSA,Total - Annual Screen 0.35 ng/mL (0.00-4.00); Potassium 4.4 mmol/L (3.5-5.1); Protein, Total 7.7 g/dL (6.4-8.2); Sodium Level 138 mmol/L (136-145); Thyroid Stim Hormone (TSH) 3.38 uIU/mL (0.358-3.74); Triglycerides 187 mg/dL; Very Low Density Lipoprotein 37 mg/dL (5-40)
[2022-12-20 18:15] LABS: Hemoglobin A1c 5.7 % (3.8-5.6)
[2022-12-21 13:29] LABS: Pathologist Review Reviewed
[2022-12-22 20:36] LABS: VITAMIN B6 26.4 ug/L (3.4-65.2); Vitamin B1, Thiamine 299.2 nmol/L (66.5-200.0)
== END | disposition home or self-care (01) ==
PROVIDERS: PCP Family Medicine; Visit Provider Family Medicine
DX: I10 Essential (primary) hypertension (principal); M10.9 Gout, unspecified; E55.9 Vitamin D deficiency, unspecified; E53.9 Vitamin B deficiency, unspecified; R73.09 Other abnormal glucose; Z12.5 Encounter for screening for malignant neoplasm of prostate
CPT/HCPCS: 36415; 80053; 80061; 81001; 82306; 82607; 83036; 84153; 84207; 84425; 84443; 84550; 85025; G0103

== ENCOUNTER → 2023-06-15 | Outpatient (CLI) | payer MEDICARE, MEDICAID, SELFPAY ==
[2023-06-15 10:24] LABS: Bacteria 0 SEEN /hpf (None Seen); Mucous, Urine 0 SEEN /hpf (<or=2+); Red Blood Cells-Urine 0 SEEN /hpf (0-5); Squamous Epithelial Cells - UA 0 SEEN /hpf (0-5); White Blood Cells 0 SEEN /hpf (0-5)
[2023-06-15 12:41] LABS: Absolute Neutrophil Count 13.7 X10^3/uL (2.0-7.7); Basophil# 0.24 X10^3/uL; Basophil% 1.3 % (0-1); Eosinophil# 0.35 X10^3/uL; Eosinophils% 1.9 % (0-5); Hematocrit 40.5 % (40-54); Hemoglobin 12.8 g/dL (13.0-16.5); Lymphocyte % 12.4 % (19-41); Mean Corp Hgb Conc 31.6 g/dL (32-36); Mean Corpuscular Hgb 31.4 pg (27.0-32.0); Mean Corpuscular Volume 99.5 fL (80-94); Mean Platelet Vol. 11.7 fl (6.2-12.0); Monocyte% 8.7 % (0-10); NRBC Flagged by Analyzer 0 % (0-5); Neutrophil # 13.72 X10^3/uL (2.7-7.7); Neutrophil % 74.2 % (47-70); POSITIVE DIFFERENTIAL YES; Platelet Count 510 K/mm3 (150-450); RBC Distribution Width CV 15.9 % (11.6-14.6); RBC Distribution Width SD 57.5 fl (35.1-43.9); Red Blood Count 4.07 M/mm3 (4.6-6.2); White Blood Count 18.5 K/mm3 (4.4-11.0)
[2023-06-15 12:48] LABS: Color, Urine Yellow (Yellow); Glucose, Dipstick Normal (Normal); Ketone-Dipstick Negative (Negative); Leukocyte Esterase-Dipstick Negative /ul (Negative); Nitrite-Dipstick Negative (Negative); Occult Blood-Urine Negative /ul (Negative); Protein-Dipstick Negative (Negative); Specific Gravity, Urine 1.015 (1.002-1.030); Urine Bilirubin Dipstick Negative (Negative); Urine Clarity Clear (Clear); Urine Urobilinogen Normal (Normal)
[2023-06-15 12:49] LABS: Hemoglobin A1c 5.8 % (3.8-5.6)
[2023-06-15 12:50] LABS: Vitamin D,25 Hydroxy 40.7 ng/mL
[2023-06-15 12:51] LABS: Differential Indicated SCAN CRITERIA MET
[2023-06-15 13:08] LABS: ALB/GLOB Ratio 1.1 RATIO (0.9-2.4); AST(SGOT) 30 U/L (15-37); Alanine Aminotransfer ALT/SGPT 38 U/L (16-61); Alkaline Phosphatase 124 U/L (45-117); Anion Gap 6 (5-15); BUN 24 mg/dL (7-18); BUN/Creat Ratio 17.3 RATIO (10-20); Calcium,Total 9.2 mg/dL (8.5-10.1); Chloride 106 mmol/L (98-107); Cholesterol 101 mg/dL (200); Creatinine, Serum 1.39 mg/dL (0.70-1.30); EST Glomerular Filtration Rate 54 mL/min (>60); Est Glom Filt Rate - Afr Amer 66 mL/min (>60); Globulin 3.7 g/dL (2.2-4.2); Glucose 70 mg/dL (74-106); High Density Lipoprotein 24 mg/dL; Magnesium 2.3 mg/dL (1.6-2.6); Potassium 4.7 mmol/L (3.5-5.1); Protein, Total 7.7 g/dL (6.4-8.2); Sodium Level 137 mmol/L (136-145); Thyroid Stim Hormone (TSH) 4.54 uIU/mL (0.358-3.74); Triglycerides 202 mg/dL; Uric Acid 5.4 mg/dL (3.5-7.2); Very Low Density Lipoprotein 40 mg/dL (5-40)
[2023-06-15 13:18] LABS: Differential Comment SCANNED; Hypochromasia May foll
[2023-06-16 11:53] LABS: T4 Free Direct 0.89 ng/dL (0.76-1.46)
[2023-06-16 15:33] LABS: Pathologist Review Reviewed
== END | disposition home or self-care (01) ==
LOC: MFPLAB 10:19
PROVIDERS: PCP Family Medicine; Visit Provider Family Medicine
DX: I10 Essential (primary) hypertension (principal); I48.0 Paroxysmal atrial fibrillation; M10.9 Gout, unspecified; E55.9 Vitamin D deficiency, unspecified; R73.02 Impaired glucose tolerance (oral)
CPT/HCPCS: 36415; 80053; 80061; 81001; 82306; 83036; 83735; 84432; 84439; 84443; 84550; 85025; 86376; 86800

== ENCOUNTER → 2023-10-25 | Outpatient (CLI) | payer MEDICARE, SELFPAY ==
[2023-10-25 08:55] LABS: Bacteria 0 SEEN /hpf (None Seen); Mucous, Urine 0 SEEN /hpf (<or=2+); Red Blood Cells-Urine 0 SEEN /hpf (0-5); Squamous Epithelial Cells - UA 0 SEEN /hpf (0-5); White Blood Cells 0 SEEN /hpf (0-5)
[2023-10-25 10:19] LABS: Absolute Lymphocyte Count 2.65 X10^3/uL (0.83-4.51); Absolute Neutrophil Count 17.4 X10^3/uL (2.0-7.7); Basophil# 0.29 X10^3/uL; Basophil% 1.3 % (0-1); Color, Urine Yellow (Yellow); Eosinophil# 0.37 X10^3/uL; Eosinophils% 1.6 % (0-5); Glucose, Dipstick Normal (Normal); Hematocrit 40.2 % (40-54); Hemoglobin 12.7 g/dL (13.0-16.5); Ketone-Dipstick Negative (Negative); Leukocyte Esterase-Dipstick Negative /ul (Negative); Lymphocyte # 2.65 X10^3/ul (0.83-4.51); Lymphocyte % 11.5 % (19-41); Mean Corp Hgb Conc 31.6 g/dL (32-36); Mean Corpuscular Hgb 30.9 pg (27.0-32.0); Mean Corpuscular Volume 97.8 fL (80-94); Mean Platelet Vol. 11.3 fl (6.2-12.0); Monocyte# 1.83 X10^3/uL; NRBC Flagged by Analyzer 0 % (0-5); Neutrophil # 17.42 X10^3/uL (2.7-7.7); Neutrophil % 75.7 % (47-70); Nitrite-Dipstick Negative (Negative); Occult Blood-Urine Negative /ul (Negative); POSITIVE DIFFERENTIAL YES; Platelet Count 582 K/mm3 (150-450); Protein-Dipstick 15 mg/dl (Negative); RBC Distribution Width CV 16.6 % (11.6-14.6); RBC Distribution Width SD 60.1 fl (35.1-43.9); Red Blood Count 4.11 M/mm3 (4.6-6.2); Urine Bilirubin Dipstick Negative (Negative); Urine Clarity Clear (Clear); Urine Urobilinogen Normal (Normal)
[2023-10-25 10:20] LABS: Differential Indicated SCAN CRITERIA MET
[2023-10-25 10:33] LABS: Differential Comment SCANNED
[2023-10-25 10:37] LABS: Protein, Urine (Random) 15.7 mg/dL (<11.9); Protein:Creat Ratio 83 mg/g CRE (0-200)
[2023-10-25 10:48] LABS: ALB/GLOB Ratio 1.1 RATIO (0.9-2.4); AST(SGOT) 24 U/L (15-37); Alanine Aminotransfer ALT/SGPT 24 U/L (16-61); Albumin, Serum 3.9 g/dL (3.2-5.0); Alkaline Phosphatase 95 U/L (45-117); Anion Gap 7 (5-15); BUN 25 mg/dL (7-18); BUN/Creat Ratio 20.5 RATIO (10-20); Calcium,Total 8.7 mg/dL (8.5-10.1); Chloride 110 mmol/L (98-107); Cholesterol 100 mg/dL (200); Creatinine, Serum 1.22 mg/dL (0.70-1.30); EST Glomerular Filtration Rate 63 mL/min (>60); Est Glom Filt Rate - Afr Amer 76 mL/min (>60); Globulin 3.7 g/dL (2.2-4.2); Glucose 108 mg/dL (74-106); High Density Lipoprotein 21 mg/dL; Magnesium 2.1 mg/dL (1.6-2.6); Phosphorus 3.9 mg/dL (2.5-4.9); Potassium 4.6 mmol/L (3.5-5.1); Protein, Total 7.6 g/dL (6.4-8.2); Sodium Level 138 mmol/L (136-145); Thyroid Stim Hormone (TSH) 4.64 uIU/mL (0.358-3.74); Triglycerides 231 mg/dL; Very Low Density Lipoprotein 46 mg/dL (5-40)
[2023-10-25 12:45] LABS: Hemoglobin A1c 5.8 % (3.8-5.6)
[2023-10-25 13:40] LABS: PTHIN 11.9 pg/mL (18.4-80.1)
[2023-10-25 13:48] LABS: Vitamin D,25 Hydroxy 46.6 ng/mL
[2023-10-26 14:18] LABS: Pathologist Review Reviewed
[2023-10-27 12:43] LABS: T4 Free Direct 0.81 ng/dL (0.76-1.46)
== END | disposition home or self-care (01) ==
PROVIDERS: PCP Family Medicine; Visit Provider Family Medicine
DX: I12.9 Hypertensive chronic kidney disease with stage 1 through stage 4 chronic kidney disease, or unspecified chronic kidney disease (principal); N18.30 Chronic kidney disease, stage 3 unspecified; E55.9 Vitamin D deficiency, unspecified; R73.02 Impaired glucose tolerance (oral); R79.89 Other specified abnormal findings of blood chemistry; R69 Illness, unspecified
CPT/HCPCS: 36415; 80053; 80061; 81001; 82306; 82570; 83036; 83735; 83970; 84100; 84156; 84432; 84439; 84443; 85025; 86376; 86800

== ENCOUNTER → 2023-10-28 | Outpatient (CLI) | payer MEDICARE, SELFPAY ==
--- NOTE | 2023-10-28 13:48 | ART_ITS ---
Reason For Study: Decreased Pedal Pulses Procedure A bilateral lower extremity continuous wave Doppler with analog waveform analysis,segmental pressures,and ankle brachial indexes with exercise. Left Segmental Pressures Left brachial= 121mmHg. Left posterior tibial artery = 137mmHg. Left dorsalis pedis artery = 132mmHg. Right Segmental Pressures Right brachial= 116mmHg. Right posterior tibial artery = 138mmHg. Right dorsalis pedis artery = 135mmHg. Indices The right ankle brachial index by the posterior tibial artery is 1.14. The right ankle brachial index by the dorsalis pedis is 1.12. The right post exercise ankle brachial index is 1.25. The left ankle brachial index by the posterior tibial artery is 1.13. The left ankle brachial index by the dorsalis pedis is 1.09. The left post exercise ankle brachial index is 1.21. VL/Lower Ext Art Exam w/ Exercise Interpretation Summary Right INOCENCIO 1.14, normal. Doppler/PVR waveforms of the right leg normal at rest. Right lower extremity exhibits normal response to exercise. Left INOCENCIO 1.13, normal. Doppler/PVR waveforms of the left leg normal at rest. Left lower extremity exhibits normal response to exercise. Ordering Physician: Jim Wilson Referring Physician: JIM WILSON MD Performed By: Tiara Pineda RDCS/RVT
--- OUTSIDE RECORDS SUMMARY | 2023-10-28 15:10 | XMS RPT_ITS | CCD ---
Author Name Unknown Address [address] [facility] [address] [place] [address] Organization [facility] Care Team Providers Care Hydraulics Teacher Name Role Phone TABBY CHI Unavailable Unavailable NICOLASA METZ Unavailable Unavailable HILDA LINK Unavailable Unavailable JIM CHAIREZ Unavailable Unavailable BERTRAM TOUSSAINT Unavailable Unavailable CHERYLE TINOCO Unavailable Unavailable JIM RANDOLPH Unavailable Unavailable PAIGE HAWKINS Unavailable Unavailable MONISHA YAO Unavailable Unavailable MILES KAUR Unavailable Unavailable MARIMAR EDWARDS Unavailable Unavailable PEEWEE SANCHEZ Unavailable Unavailable SCOOTER RAMSEY Unavailable Unavailabl e Results Test Name Value Interpretation Reference Range Facil ity Encounters Encounter Date Encounter Type Care Provider Facility Start: 03-28-2018 End: 04-01-2018 Evaluation and management of inpatient [facility] Facility:A Payers Date Payer Category Payer Medicaid [id number] Summary Purpose Family History No Family History Records Found Advance Directives No Advanced Directives Records Found Additional Source Comments (unrecognized sect ion and content) No Status Records Found INFORMATION SOURCE (unrecogn ized section and content) FOR RECORDS PERTAINING TO PATIENTS WHO ARE OR HAVE BEEN ENROLLED IN A CHEMICAL DEPENDENCY/SUBSTANCEABUSE PROGRAM, SOME INFORMATION MAY BE OMITTED. This clinical summary was aggregated from multiple sources. Caution should be exercised in using it in the provision of clinical care. This summary normalizes information from multiple sources, and as a consequence, information in this document may materially change the coding, format and clinical context of patient data. In addition, data may be omitted in some cases. CLINICAL DECISIONS SHOULD BE BASED ON THE PRIMARY CLINICAL RECORDS. [facility] [employer] provides no warranty or guarantee of the accuracy or completeness of information in this document.
== END | disposition home or self-care (01) ==
LOC: CVS 13:45
PROVIDERS: PCP Family Medicine; Referring Provider Family Medicine; Visit Provider Family Medicine
DX: R09.89 Other specified symptoms and signs involving the circulatory and respiratory systems (principal)
CPT/HCPCS: 93924

== ENCOUNTER → 2023-12-23 | Outpatient (CLI) | payer MEDICARE, SELFPAY ==
[2023-12-23 15:56] LABS: PSA,Total - Annual Screen 0.27 ng/mL (0.00-4.00)
== END | disposition home or self-care (01) ==
LOC: MFPLAB 11:21
PROVIDERS: PCP Family Medicine; Visit Provider Family Medicine
DX: Z12.5 Encounter for screening for malignant neoplasm of prostate (principal)
CPT/HCPCS: 36415; 84153; G0103

== ENCOUNTER → 2024-04-05 | Outpatient (CLI) | payer MEDICARE, SELFPAY ==
[2024-04-05 10:53] LABS: Absolute Lymphocyte Count 2.31 X10^3/uL (0.83-4.51); Absolute Neutrophil Count 13.5 X10^3/uL (2.0-7.7); Basophil# 0.29 X10^3/uL; Basophil% 1.6 % (0-1); Eosinophil# 0.33 X10^3/uL; Eosinophils% 1.8 % (0-5); Hematocrit 40.7 % (40-54); Hemoglobin 13.1 g/dL (13.0-16.5); Lymphocyte # 2.31 X10^3/ul (0.83-4.51); Lymphocyte % 12.6 % (19-41); Mean Corp Hgb Conc 32.2 g/dL (32-36); Mean Corpuscular Hgb 31.2 pg (27.0-32.0); Mean Corpuscular Volume 96.9 fL (80-94); Mean Platelet Vol. 11.5 fl (6.2-12.0); Monocyte# 1.64 X10^3/uL; Monocyte% 8.9 % (0-10); NRBC Flagged by Analyzer 0 % (0-5); Neutrophil # 13.53 X10^3/uL (2.7-7.7); Neutrophil % 73.5 % (47-70); POSITIVE DIFFERENTIAL YES; Platelet Count 548 K/mm3 (150-450); RBC Distribution Width CV 15.7 % (11.6-14.6); RBC Distribution Width SD 55.2 fl (35.1-43.9); White Blood Count 18.4 K/mm3 (4.4-11.0)
[2024-04-05 11:15] LABS: PTHIN 35.4 pg/mL (18.4-80.1)
[2024-04-05 11:18] LABS: Vitamin B12 870 pg/mL (211-911); Vitamin D,25 Hydroxy 39.1 ng/mL
[2024-04-05 11:36] LABS: AST(SGOT) 31 U/L (15-37); Alanine Aminotransfer ALT/SGPT 26 U/L (16-61); Albumin, Serum 4.2 g/dL (3.2-5.0); Alkaline Phosphatase 82 U/L (45-117); Anion Gap 8 (5-15); BUN 28 mg/dL (7-18); Calcium,Total 9.2 mg/dL (8.5-10.1); Chloride 106 mmol/L (98-107); Cholesterol 99 mg/dL (200); Creatinine, Serum 1.47 mg/dL (0.70-1.30); EST Glomerular Filtration Rate 51 mL/min (>60); Est Glom Filt Rate - Afr Amer 61 mL/min (>60); Globulin 4.1 g/dL (2.2-4.2); Glucose 103 mg/dL (74-106); High Density Lipoprotein 26 mg/dL; Magnesium 2.4 mg/dL (1.6-2.6); Phosphorus 3.6 mg/dL (2.5-4.9); Protein, Total 8.3 g/dL (6.4-8.2); Sodium Level 139 mmol/L (136-145); Triglycerides 153 mg/dL; Uric Acid 5.5 mg/dL (3.5-7.2); Very Low Density Lipoprotein 31 mg/dL (5-40)
[2024-04-05 11:38] LABS: Differential Indicated SCAN CRITERIA MET
[2024-04-05 12:54] LABS: Hemoglobin A1c 5.6 % (3.8-5.6)
[2024-04-06 13:47] LABS: Pathologist Review Reviewed
== END | disposition home or self-care (01) ==
PROVIDERS: PCP Family Medicine; Referring Provider Family Medicine; Visit Provider Family Medicine
DX: I12.9 Hypertensive chronic kidney disease with stage 1 through stage 4 chronic kidney disease, or unspecified chronic kidney disease (principal); N18.30 Chronic kidney disease, stage 3 unspecified; E53.9 Vitamin B deficiency, unspecified; R73.02 Impaired glucose tolerance (oral)
CPT/HCPCS: 36415; 80053; 80061; 82306; 82607; 83036; 83735; 83970; 84100; 84550; 85025

== ENCOUNTER → 2024-06-06 | Outpatient (CLI) | payer MEDICARE, SELFPAY ==
--- NOTE | 2024-06-06 13:47 | CT_ITS ---
STUDY: LOW DOSE CT LUNG CANCER SCREENING REASON FOR EXAM: Male, 69 years old. History of tobacco use. Patient smokes 10 cigarettes per day for 34 years. RADIATION DOSAGE (If Supplied By Facility): CTDIvol = ( 3.18 ) mGy, DLP = ( 123.92 ) mGycm TECHNIQUE: No contrast was administered. Low dose technique was utilized (average mAS-38 and kVp 120). 1.25 mm axial source images with a slice interval of 1.25-mm were reconstructed in lung windows. 2.5 mm axial source images with a slice interval of 2.5-mm were reconstructed in lung windows. 5.0 mm axial source images with a slice interval of 5.0-mm were reconstructed in soft tissue windows. COMPARISON: Comparison is made with prior study dated September 13, 2022. NODULES: No suspicious nodules are seen. Emphysema: Mild degree of emphysematous changes. Endobronchial lesion: Unremarkable Aorta: Atherosclerotic plaque formation of the aortic arch. CORONARY ARTERIES: Coronary artery calcification is not seen. Heart: A left-sided dual-chamber pacemaker is seen. Cardiomegaly. Pulmonary artery: Unremarkable. Mediastinal nodes: Unremarkable. Other chest and abdominal findings: CT/Low Dose CT Lung Screening IMPRESSION: Lung-RADS category 2 - Continue annual screening with LDCT in 12 months. IMPORTANT NOTES FOR USE: ACR Lung-RADS Version 1.1 Assessment Categories Release Date: 2018 Category: Coded 0-4 bases on nodule(s) with highest degree of suspicion. Negative screen is defined as categories 1 and 2; a positive screen is defined as categories 3 and 4. Category 3 and 4A nodules that are unchanged on interval CT should be coded as category 2, and individuals returned to screening in 12 months. Category 4X: Category 3 or 4 nodules with additional imaging findings that increase the suspicion of lung cancer, such as spiculation, GGN that doubles in size in 1 year, enlarged lymph notes, etc. Category Modifiers: S (significant finding unrelated to lung cancer) Electronically Signed: Tyrese Osborn MD at 10:48 EDT ,
== END | disposition home or self-care (01) ==
PROVIDERS: PCP Family Medicine; Referring Provider Family Medicine; Visit Provider Family Medicine
DX: Z87.891 Personal history of nicotine dependence (principal)
CPT/HCPCS: 71271

== ENCOUNTER → 2024-08-28 | Outpatient (CLI) | payer MEDICARE, SELFPAY ==
[2024-08-28 08:54] LABS: Bacteria 0 SEEN /hpf (None Seen); Mucous, Urine 0 SEEN /hpf (<or=2+); Red Blood Cells-Urine 0 SEEN /hpf (0-5); Squamous Epithelial Cells - UA 0 SEEN /hpf (0-5); White Blood Cells 0 SEEN /hpf (0-5)
[2024-08-28 10:10] LABS: Absolute Lymphocyte Count 2.23 X10^3/uL (0.83-4.51); Absolute Neutrophil Count 20.1 X10^3/uL (2.0-7.7); Basophil# 0.27 X10^3/uL; Basophil% 1.1 % (0-1); Eosinophil# 0.33 X10^3/uL; Eosinophils% 1.3 % (0-5); Hematocrit 42.2 % (40-54); Hemoglobin 13.2 g/dL (13.0-16.5); Lymphocyte # 2.23 X10^3/ul (0.83-4.51); Lymphocyte % 8.9 % (19-41); Mean Corp Hgb Conc 31.3 g/dL (32-36); Mean Corpuscular Hgb 31.1 pg (27.0-32.0); Mean Corpuscular Volume 99.3 fL (80-94); Mean Platelet Vol. 11.2 fl (6.2-12.0); Monocyte# 1.84 X10^3/uL; Monocyte% 7.3 % (0-10); NRBC Flagged by Analyzer 0 % (0-5); Neutrophil # 20.09 X10^3/uL (2.7-7.7); Neutrophil % 80.2 % (47-70); POSITIVE DIFFERENTIAL YES; Platelet Count 735 K/mm3 (150-450); RBC Distribution Width CV 16.8 % (11.6-14.6); RBC Distribution Width SD 61.3 fl (35.1-43.9); Red Blood Count 4.25 M/mm3 (4.6-6.2); White Blood Count 25.1 K/mm3 (4.4-11.0)
[2024-08-28 10:13] LABS: Color, Urine Yellow (Yellow); Glucose, Dipstick Normal (Normal); Ketone-Dipstick Negative (Negative); Leukocyte Esterase-Dipstick 25 /ul (Negative); Nitrite-Dipstick Negative (Negative); Occult Blood-Urine Negative /ul (Negative); Protein-Dipstick 15 mg/dl (Negative); Urine Bilirubin Dipstick Negative (Negative); Urine Clarity Clear (Clear); Urine Urobilinogen 1 mg/dl (Normal)
[2024-08-28 10:14] LABS: Differential Indicated SCAN CRITERIA MET
[2024-08-28 10:19] LABS: Hyaline Cast 5-10 SEEN /lpf (0-5)
[2024-08-28 10:29] LABS: Vitamin D,25 Hydroxy 33.2 ng/mL
[2024-08-28 10:35] LABS: PTHIN 24.2 pg/mL (18.4-80.1)
[2024-08-28 10:42] LABS: Differential Comment SCANNED; Platelet Estimate MKD INC (ADEQ)
[2024-08-28 10:43] LABS: Anisocytosis 1+; Macrocytosis 1+; Polychromasia 1+; Tear Drop Cell 1+
[2024-08-28 10:44] LABS: AST(SGOT) 29 U/L (15-37); Alanine Aminotransfer ALT/SGPT 30 U/L (16-61); Alkaline Phosphatase 88 U/L (45-117); Anion Gap 4 (5-15); BUN 26 mg/dL (7-18); BUN/Creat Ratio 16.7 RATIO (10-20); Calcium,Total 9.1 mg/dL (8.5-10.1); Chloride 106 mmol/L (98-107); Creatinine, Serum 1.56 mg/dL (0.70-1.30); EST Glomerular Filtration Rate 47 mL/min (>60); Est Glom Filt Rate - Afr Amer 57 mL/min (>60); Glucose 101 mg/dL (74-106); Magnesium 2.3 mg/dL (1.6-2.6); Phosphorus 3.9 mg/dL (2.5-4.9); Potassium 4.7 mmol/L (3.5-5.1); Sodium Level 136 mmol/L (136-145); Uric Acid 5.2 mg/dL (3.5-7.2)
[2024-08-28 10:53] LABS: Protein, Urine (Random) 23.2 mg/dL (<11.9); Protein:Creat Ratio 86 mg/g CRE (0-200)
[2024-08-28 13:38] LABS: Pathologist Review Reviewed
== END | disposition home or self-care (01) ==
LOC: MFPLAB 08:48
PROVIDERS: PCP Family Medicine; Visit Provider Family Medicine
DX: N18.30 Chronic kidney disease, stage 3 unspecified (principal); I48.0 Paroxysmal atrial fibrillation; R73.02 Impaired glucose tolerance (oral); M10.9 Gout, unspecified
CPT/HCPCS: 36415; 80053; 81001; 82306; 82570; 83036; 83735; 83970; 84100; 84156; 84550; 85025

== ENCOUNTER → 2024-11-07 | Outpatient (CLI) | payer MEDICARE, SELFPAY ==
--- NOTE | 2024-11-07 09:58 | ECHOD_ITS ---
Reason For Study: ATRIAL FIBRILLATION Procedure This was a 2D Doppler, Color Flow transthoracic echocardiogram. The study was technically difficult. Exam performed in department. Left Ventricle Normal LV size. Left ventricular systolic function is normal. The left ventricular ejection fraction is 55 %. No regional wall motion abnormalities noted. Right Ventricle Normal RV size. ICD or pacer leads identified within the right ventricle. Normal systolic function. Atria The left atrium is moderately enlarged. Normal right atrium. Mitral Valve Normal mitral valve. Mild (1+) eccentric mitral valve insufficiency. Tricuspid Valve Normal tricuspid valve. Aortic Valve Trisinus/trileaflet aortic valve. Pulmonic Valve Normal pulmonic valve. Great Vessels Normal aortic root. The pulmonary artery is normal size. Inferior vena cava collapse with respiration. Pericardium/Pleural No pericardial effusion. Medication Definity deferred due to prior reaction. MMode/2D Measurements & Calculations LVIDd: 4.6 cm IVSd: 1.1 cm LVOT diam: 2.1 cm LVIDs: 3.2 cm LVPWd: 1.1 cm RVDd: 4.5 cm FS: 31.6 % LVOT area: 3.4 cm2 asc Aorta Diam: 3.5 cm LAV(MOD-bp): 117.5 ml LVAd ap4: 24.2 cm2 LAV(MOD-bp) Indexed: 53.6 ml/m2 LVLd ap4: 7.3 cm LAV(MOD-sp2): 109.8 ml EDV(MOD-sp4): 65.3 ml LAV(MOD-sp4): 112.1 ml EDV(sp4-el): 68.1 ml LVAs ap4: 16.2 cm2 LVLs ap4: 6.4 cm ESV(MOD-sp4): 34.1 ml ESV(sp4-el): 34.8 ml EF(MOD-sp4): 47.8 % EF(sp4-el): 48.9 % LVAd ap2: 25.0 cm2 SV(MOD-sp4): 31.2 ml SV(MOD-sp2): 32.6 ml LVLd ap2: 8.1 cm SI(MOD-sp4): 14.2 ml/m2 SI(MOD-sp2): 14.9 ml/m2 EDV(MOD-sp2): 63.6 ml EDV(sp2-el): 65.9 ml LVAs ap2: 16.0 cm2 LVLs ap2: 6.7 cm ESV(MOD-sp2): 31.0 ml ESV(sp2-el): 32.0 ml EF(MOD-sp2): 51.3 % SV(sp4-el): 33.3 ml Ao sinus diam: 3.[address] Junction: 2.7 cm LA dimension(2D): 5.5 cm LA A4 area: 31.4 cm2 RA A4 area: 20.9 cm2 TAPSE: 1.7 cm Time Measurements MV dec time: 0.17 sec Doppler Measurements & Calculations MV E max kaveh: 69.6 cm/sec Lat Peak E' Kaveh: 8.2 cm/sec Med Peak E' Kaveh: 9.2 cm/sec E/E' lat: 8.4 E/E' med: 7.6 Ao V2 max: 77.5 cm/sec LV V1 max: 68.5 cm/sec SV(LVOT): 54.9 ml Ao max P.4 mmHg LV V1 max P.9 mmHg Ao V2 mean: 57.0 cm/sec LV V1 mean P.0 mmHg Ao mean P.4 mmHg LV V1 mean: 47.0 cm/sec Ao V2 VTI: 17.4 cm LV V1 VTI: 16.1 cm AV (velocity ratio): 0.93 BRETT(I,D): 3.2 cm2 BRETT(V,D): 3.0 cm2 PA V2 max: 70.1 cm/sec TR max kaveh: 227.2 cm/sec TR max P.7 mmHg ECHO/Echo Complete Interpretation Summary Normal LV size. Left ventricular systolic function is normal. The left ventricular ejection fraction is 55 %. The left atrium is moderately enlarged. Ordering Physician: Michael Mcdonnell Referring Physician: Kai Wilson Performed By: Negra Pitts RDCS
== END | disposition home or self-care (01) ==
LOC: CVS 09:56
PROVIDERS: PCP Family Medicine; Referring Provider Internal Medicine Cardiovascular Disease; Visit Provider Internal Medicine Cardiovascular Disease
DX: I42.8 Other cardiomyopathies (principal)
CPT/HCPCS: 93306

== ENCOUNTER → 2024-12-25 | Outpatient (CLI) | payer MEDICARE, SELFPAY ==
[2024-12-25 15:59] LABS: Absolute Neutrophil Count 18.1 X10^3/uL (2.0-7.7); Basophil# 0.29 X10^3/uL; Basophil% 1.2 % (0-1); Eosinophils% 1.7 % (0-5); Hematocrit 37.2 % (40-54); Hemoglobin 11.8 g/dL (13.0-16.5); Lymphocyte % 9.8 % (19-41); Mean Corp Hgb Conc 31.7 g/dL (32-36); Mean Corpuscular Hgb 31.3 pg (27.0-32.0); Mean Corpuscular Volume 98.7 fL (80-94); Mean Platelet Vol. 11.5 fl (6.2-12.0); Monocyte# 1.91 X10^3/uL; Monocyte% 8.2 % (0-10); NRBC Flagged by Analyzer 0 % (0-5); Neutrophil # 18.09 X10^3/uL (2.7-7.7); Neutrophil % 77.2 % (47-70); POSITIVE DIFFERENTIAL YES; Platelet Count 552 K/mm3 (150-450); RBC Distribution Width CV 16.6 % (11.6-14.6); RBC Distribution Width SD 60.1 fl (35.1-43.9); Red Blood Count 3.77 M/mm3 (4.6-6.2); White Blood Count 23.4 K/mm3 (4.4-11.0)
[2024-12-25 16:14] LABS: Differential Indicated SCAN CRITERIA MET
[2024-12-25 17:14] LABS: Platelet Estimate MOD INC (ADEQ); Platelet Morphology LARGE; Red Cell Morphology N CHROM NORMAL (NORM C&C)
[2024-12-25 17:15] LABS: Anisocytosis 1+; Macrocytosis 1+; Ovalocyte RARE; Pathologist Review May foll
[2024-12-25 19:46] LABS: ALB/GLOB Ratio 1.4 RATIO (0.9-2.4); AST(SGOT) 27 U/L (<=37); Alanine Aminotransfer ALT/SGPT 19 U/L (<=46); Albumin, Serum 4.3 g/dL (3.4-4.8); Alkaline Phosphatase 85 U/L (40-129); Anion Gap 12 (5-15); BUN 24 mg/dL (4-19); BUN/Creat Ratio 19.5 RATIO (10-20); Calcium,Total 9.5 mg/dL (7.6-11.0); Carbon Dioxide 20.7 mmol/L (21.0-32.0); Chloride 103 mmol/L (98-108); Creatinine, Serum 1.24 mg/dL (0.70-1.20); EST Glomerular Filtration Rate 63 (>60); Globulin 3.2 g/dL (2.2-4.2); Glucose 120 mg/dL (70-99); PSA,Total - Annual Screen 0.22 ng/mL (0.02-4.00); Potassium 4.7 mmol/L (3.3-5.1); Protein, Total 7.5 g/dL (5.9-8.4); Sodium Level 136 mmol/L (133-145)
[2024-12-25 20:48] LABS: Hemoglobin A1c 6.2 % (<=5.6)
== END | disposition home or self-care (01) ==
LOC: MFPLAB 11:44
PROVIDERS: PCP Family Medicine; Referring Provider Family Medicine; Visit Provider Family Medicine
DX: I10 Essential (primary) hypertension (principal); Z12.5 Encounter for screening for malignant neoplasm of prostate; R73.02 Impaired glucose tolerance (oral)
CPT/HCPCS: 36415; 80053; 83036; 84153; 85025; G0103

== ENCOUNTER 2025-05-02 11:47 | Outpatient (CLI) | payer MEDICARE, SELFPAY ==
[2025-05-02 11:52] LABS: Red Blood Cells-Urine 0 SEEN /hpf (0-5); Squamous Epithelial Cells - UA 0 SEEN /hpf (0-5)
[2025-05-02 15:26] LABS: Differential Indicated SCAN CRITERIA MET; Hematocrit 38.6 % (40-54); Hemoglobin 12.6 g/dL (13.0-16.5); Immature Granulocytes Count 0.370 X10^3/uL (0.0-0.0); Mean Corp Hgb Conc 32.6 g/dL (32-36); Mean Corpuscular Volume 95.1 fL (80-94); Mean Platelet Vol. 11.5 fl (6.2-12.0); NRBC Flagged by Analyzer 0 % (0-5); POSITIVE DIFFERENTIAL YES; Platelet Count 568 K/mm3 (150-450); RBC Distribution Width CV 16.6 % (11.6-14.6); RBC Distribution Width SD 58.2 fl (35.1-43.9); Red Blood Count 4.06 M/mm3 (4.6-6.2); White Blood Count 20.9 K/mm3 (4.4-11.0)
[2025-05-02 15:42] LABS: Color, Urine Yellow (Yellow); Glucose, Dipstick Normal (Normal); Ketone-Dipstick 5 mg/dl (Negative); Leukocyte Esterase-Dipstick 25 /ul (Negative); Nitrite-Dipstick Negative (Negative); Occult Blood-Urine Negative /ul (Negative); Protein-Dipstick 30 mg/dl (Negative); Specific Gravity, Urine 1.020 (1.002-1.030); Urine Bilirubin Dipstick Negative (Negative)
[2025-05-02 16:24] LABS: Mucous, Urine 2+ /hpf (<or=2+)
[2025-05-02 16:57] LABS: AST(SGOT) 30 U/L (<=37); Alanine Aminotransfer ALT/SGPT 21 U/L (<=46); Albumin, Serum 4.5 g/dL (3.4-4.8); Alkaline Phosphatase 82 U/L (40-129); Anion Gap 12 (5-15); BUN 25 mg/dL (4-19); BUN/Creat Ratio 16.9 RATIO (10-20); Calcium,Total 9.3 mg/dL (7.6-11.0); Carbon Dioxide 22.0 mmol/L (21.0-32.0); Chloride 102 mmol/L (98-108); Cholesterol 94 mg/dL (<=200); Globulin 3.4 g/dL (2.2-4.2); Glucose 117 mg/dL (70-99); Low Density Lipoprotein Calc. 41 mg/dL; Magnesium 1.8 mg/dL (1.5-2.2); Potassium 4.9 mmol/L (3.3-5.1); Triglycerides 152 mg/dL; Uric Acid 5.2 mg/dL (3.5-7.2); Very Low Density Lipoprotein 30 mg/dL (5-40); Vitamin B12 1341 pg/mL (180-914); Vitamin D,25 Hydroxy 33.3 ng/mL (30-100); cholesterol:hdl ratio screen 4.29
[2025-05-02 17:32] LABS: Reactive Lymphocyte 1+
[2025-05-02 17:35] LABS: Polychromasia RARE
[2025-05-08 14:09] LABS: VITAMIN B6 52.0 ug/L (3.4-65.2); Vitamin B1, Thiamine 233.0 nmol/L (66.5-200.0)
== END 2025-05-02 23:59 | disposition home or self-care (01) ==
LOC: MFPLAB 11:48
PROVIDERS: PCP Family Medicine; Referring Provider Family Medicine; Visit Provider Family Medicine
DX: I10 Essential (primary) hypertension (principal); R73.02 Impaired glucose tolerance (oral); E55.9 Vitamin D deficiency, unspecified; E53.9 Vitamin B deficiency, unspecified
CPT/HCPCS: 36415; 80053; 80061; 81001; 82306; 82607; 83036; 83735; 84207; 84425; 84443; 84550; 85025

== ENCOUNTER → 2025-05-10 | Outpatient (CLI) | payer MEDICARE, SELFPAY ==
[2025-05-13 16:08] LABS: Thyroglobulin, Serum Qt. 7.1 ng/mL (1.4-29.2)
== END | disposition home or self-care (01) ==
LOC: MFPLAB 10:48
PROVIDERS: PCP Family Medicine; Referring Provider Family Medicine; Visit Provider Family Medicine
DX: R79.89 Other specified abnormal findings of blood chemistry (principal)
CPT/HCPCS: 36415; 84432; 84439; 86376; 86800

== ENCOUNTER 2025-06-06 09:37 | Day surgery (SDC) | payer MEDICARE, SELFPAY ==
[2025-05-29 11:23] LABS: Mucous, Urine 0 SEEN /hpf (<or=2+); Red Blood Cells-Urine 0 SEEN /hpf (0-5); Squamous Epithelial Cells - UA 0 SEEN /hpf (0-5)
[2025-05-29 12:25] LABS: Hematocrit 37.8 % (40-54); Hemoglobin 12.5 g/dL (13.0-16.5); Mean Corp Hgb Conc 33.1 g/dL (32-36); Mean Corpuscular Volume 94.7 fL (80-94); Mean Platelet Vol. 11.6 fl (6.2-12.0); Platelet Count 526 K/mm3 (150-450); RBC Distribution Width CV 16.3 % (11.6-14.6); RBC Distribution Width SD 57.3 fl (35.1-43.9); Red Blood Count 3.99 M/mm3 (4.6-6.2); White Blood Count 22.0 K/mm3 (4.4-11.0)
[2025-05-29 12:32] LABS: Color, Urine Yellow (Yellow); Glucose, Dipstick Normal (Normal); Ketone-Dipstick Negative (Negative); Leukocyte Esterase-Dipstick Negative /ul (Negative); Nitrite-Dipstick Negative (Negative); Occult Blood-Urine Negative /ul (Negative); Protein-Dipstick 30 mg/dl (Negative); Specific Gravity, Urine 1.020 (1.002-1.030); Urine Bilirubin Dipstick Negative (Negative)
[2025-05-29 12:46] LABS: Prothrombin Time (Protime)PT. 16.8 SECONDS (11.7-14.9)
[2025-05-29 12:53] LABS: Anion Gap 12 (5-15); BUN 26 mg/dL (4-19); BUN/Creat Ratio 18.2 RATIO (10-20); Calcium,Total 9.6 mg/dL (7.6-11.0); Carbon Dioxide 20.8 mmol/L (21.0-32.0); Chloride 103 mmol/L (98-108); Glucose 89 mg/dL (70-99); Potassium 5.2 mmol/L (3.3-5.1)
[2025-06-05 08:46] VITALS: BMI 30.1
--- NOTE | 2025-06-06 12:21 | EX.DEFIBPROC ---
Defibrillator Procedure Note Defibrillator Procedure Note Garrick Dillard is a 70 year old male who has a past medical history of a cardiac arrest s/p ICD, permanent AF, who presented to the [facility] EP lab for further evaluation regarding an ICD generator changeout. The patient was brought to the electrophysiology laboratory in a fasting state. Sedation provided by nursing staff. The left shoulder area was prepped and draped in the usual manner and the skin and subcutaneous tissues below the left clavicle were infiltrated with 1% lidocaine for local anesthesia. The skin was sharply incised. Electrocautery and blunt dissection were carried out to the level of pulse generator. The generator was disconnected from the leads. A new generator was connected. The device was noted to function appropriately. The pocket was noted to have an absence of active bleeding. The pulse generator was placed in the pocket and sutured to the pre-pectoral fascia. The pocket was then irrigated with antibiotic solution. The incision was closed with two layers of 2-0 Vicryl and a subcuticular closure of 4-0 Vicryl. The incision was dressed with Aquacel. Conclusions Successful ICD generator changeout with adequate pacing threshold, sensing and lead impedance. Recommendations 1. Routine follow-up in the device clinic. 2. Aquacell to remain on for 1 weeek. 3. Device follow up as scheduled. 4. Hold anticoagulation for 24 hours (No heparin IV or NOAC, ok to continue warfarin). 5. The patient can continue to follow-up with Dr. Michel.
== END 2025-06-06 13:30 | disposition home or self-care (01) ==
PROVIDERS: Internal Medicine Cardiovascular Disease; PCP Family Medicine; Referring Provider Internal Medicine; Visit Provider Internal Medicine
DX: Z45.010 Encounter for checking and testing of cardiac pacemaker pulse generator [battery] (principal); I48.11 Longstanding persistent atrial fibrillation; I42.8 Other cardiomyopathies; Z82.49 Family history of ischemic heart disease and other diseases of the circulatory system; Z87.891 Personal history of nicotine dependence; Z86.74 Personal history of sudden cardiac arrest
CPT/HCPCS: 33263; 36415; 80048; 81001; 85027; 85610; 99152; 99153

== ENCOUNTER → 2025-09-04 | Outpatient (CLI) | payer MEDICARE, SELFPAY ==
[2025-09-04 13:13] LABS: Mucous, Urine 0 SEEN /hpf (<or=2+)
[2025-09-04 15:15] LABS: Hematocrit 38.9 % (40-54); Hemoglobin 12.5 g/dL (13.0-16.5); Immature Granulocytes Count 0.360 X10^3/uL (0.0-0.0); Mean Corp Hgb Conc 32.1 g/dL (32-36); Mean Corpuscular Volume 96.8 fL (80-94); Mean Platelet Vol. 11.7 fl (6.2-12.0); NRBC Flagged by Analyzer 0 % (0-5); POSITIVE DIFFERENTIAL YES; Platelet Count 494 K/mm3 (150-450); RBC Distribution Width CV 16.4 % (11.6-14.6); RBC Distribution Width SD 57.8 fl (35.1-43.9); Red Blood Count 4.02 M/mm3 (4.6-6.2); White Blood Count 22.2 K/mm3 (4.4-11.0)
[2025-09-04 15:17] LABS: Differential Indicated SCAN CRITERIA MET
[2025-09-04 15:39] LABS: PTHIN 23 pg/mL (11-61)
[2025-09-04 15:45] LABS: Creatinine, Urine (random) 211.00 mg/dL (39.00-259.00); Protein, Urine (Random) 28.5 mg/dL (0.0-12.0); Protein:Creat Ratio 135 mg/g CRE (0-200)
[2025-09-04 15:53] LABS: AST(SGOT) 34 U/L (<=37); Alanine Aminotransfer ALT/SGPT 27 U/L (<=46); Albumin, Serum 4.5 g/dL (3.4-4.8); Alkaline Phosphatase 84 U/L (40-129); Anion Gap 9 (5-15); BUN 21 mg/dL (4-19); BUN/Creat Ratio 15.3 RATIO (10-20); Calcium,Total 9.4 mg/dL (7.6-11.0); Carbon Dioxide 23.8 mmol/L (21.0-32.0); Chloride 103 mmol/L (98-108); Cholesterol 110 mg/dL (<=200); Globulin 3.4 g/dL (2.2-4.2); Glucose 97 mg/dL (70-99); Low Density Lipoprotein Calc. 56 mg/dL; Magnesium 2.0 mg/dL (1.5-2.2); Potassium 4.9 mmol/L (3.3-5.1); Triglycerides 183 mg/dL; Uric Acid 6.0 mg/dL (3.5-7.2); Very Low Density Lipoprotein 37 mg/dL (5-40); Vitamin D,25 Hydroxy 36.6 ng/mL (30-100); cholesterol:hdl ratio screen 4.85
[2025-09-04 18:38] LABS: Color, Urine Yellow (Yellow); Glucose, Dipstick Normal (Normal); Ketone-Dipstick Negative (Negative); Leukocyte Esterase-Dipstick Negative /ul (Negative); Nitrite-Dipstick Negative (Negative); Occult Blood-Urine 10 /ul (Negative); Protein-Dipstick 30 mg/dl (Negative); Specific Gravity, Urine 1.020 (1.002-1.030); Urine Bilirubin Dipstick Negative (Negative)
[2025-09-04 19:33] LABS: Differential Comment SCANNED
[2025-09-04 21:11] LABS: Red Blood Cells-Urine 0-5 SEEN /hpf (0-5); Squamous Epithelial Cells - UA 0-5 SEEN /hpf (0-5)
[2025-09-05 14:34] LABS: Ferritin 477 ng/mL (37-417); Iron 111 ug/dL (65-175); Iron Binding Capacity,Total 302 ug/dL (250-450); Iron Binding Capacity,Unsat 191 ug/dL (228-428); Vitamin B12 1403 pg/mL (180-914)
[2025-09-10 11:09] LABS: Vitamin B1, Thiamine 196.9 nmol/L (66.5-200.0)
== END | disposition home or self-care (01) ==
LOC: MTLAB 13:08
PROVIDERS: PCP Family Medicine; Referring Provider Family Medicine; Visit Provider Family Medicine
DX: D64.9 Anemia, unspecified (principal); I48.0 Paroxysmal atrial fibrillation; N18.30 Chronic kidney disease, stage 3 unspecified; I12.9 Hypertensive chronic kidney disease with stage 1 through stage 4 chronic kidney disease, or unspecified chronic kidney disease; E53.9 Vitamin B deficiency, unspecified; R73.02 Impaired glucose tolerance (oral); M10.9 Gout, unspecified
CPT/HCPCS: 36415; 80053; 80061; 81001; 82306; 82570; 82607; 82728; 83036; 83540; 83550; 83735; 83970; 84100; 84156; 84425; 84550; 85025

== ENCOUNTER 2025-10-16 10:22 | Outpatient (RCR) | payer MEDICARE, SELFPAY ==
[2025-10-16 11:46] LABS: Prothrombin Time (Protime)PT. 17.4 SECONDS (11.7-14.9)
== END 2025-10-16 18:00 | disposition home or self-care (01) ==
LOC: LAB 10:22
PROVIDERS: PCP Family Medicine; Referring Provider Physician Assistant Medical; Visit Provider Physician Assistant Medical
DX: Z79.01 Long term (current) use of anticoagulants (principal); I48.11 Longstanding persistent atrial fibrillation
CPT/HCPCS: 36415; 85610

== ENCOUNTER → 2025-10-16 | Outpatient (CLI) | payer MEDICARE, SELFPAY ==
--- NOTE | 2025-10-16 13:23 | MRI_ITS ---
PROCEDURE: SPINE LUMBAR (ROUTINE) 10/16/2025 REASON FOR EXAM: Clinical history of lumbar spondylosis. TECHNIQUE: Procedure Code: MRISPL Modality: MR Procedure: SPINE LUMBAR (ROUTINE) COMPARISON: MRI lumbar spine 08/17/2022 FINDINGS: For the purposes of this report, the most caudal rectangular vertebral body will be designated L5. The next most caudal trapezoidal shaped vertebral body will be designated S1. The intervening disc at the lumbosacral angle is designated L5-S1. The normal lumbar lordosis is maintained. The lumbar vertebral bodies are normal in height. The lumbar vertebral bodies are normal in alignment. Diffuse T1-weighted bone marrow signal loss. Intervertebral disc space height loss at L5-S1. There is no evidence of signal abnormality in the imaged distal spinal cord. The conus medullaris terminates at the level of L1. T12-L1: No significant spinal canal stenosis or neural foraminal narrowing. L1-L2: No significant spinal canal stenosis or neural foraminal narrowing. L2-L3: Disc bulge flattens the ventral thecal sac. No significant neural foraminal narrowing. L3-L4: Disc bulge flattens the ventral thecal sac. No significant neural foraminal narrowing. L4-L5: Disc bulge with superimposing right subarticular disc protrusion contributes to mild spinal canal stenosis and right subarticular zone narrowing. The right traversing nerve root abuts the disc. Mild right neural foraminal narrowing. Intact left neural foramen. L5-S1: Central disc extrusion with mild caudal migration contrast ventral thecal sac. Bilateral facet arthrosis and ligamentum flavum hypertrophy. No significant spinal canal stenosis neural foraminal narrowing. The posterior paraspinal muscles are unremarkable. Partially visualized left renal cyst. MRI/Spine Lumbar (Routine) IMPRESSION: 1. Diffuse T1-weighted bone marrow signal loss indicative of bone marrow replac ement and/or infiltration. 2. Lumbar spondylosis most prominent at L4-L5 without high-grade spinal canal o r neural foraminal stenosis. Reading Location: [id number]
[2025-10-16 13:45] VITALS: BP 110/70; PULSE 80; RESP 16; O2SAT 96
[2025-10-16 13:50] VITALS: BP 119/70; PULSE 84; RESP 16; O2SAT 98
[2025-10-16 14:00] VITALS: BP 102/66; PULSE 84; RESP 16; O2SAT 97
[2025-10-16 14:10] VITALS: BP 102/62; PULSE 85; RESP 16; O2SAT 97
[2025-10-16 14:21] VITALS: BP 101/49; PULSE 67; RESP 16; O2SAT 98
== END | disposition home or self-care (01) ==
PROVIDERS: PCP Family Medicine; Referring Provider Nurse Practitioner; Visit Provider Nurse Practitioner
DX: M47.816 Spondylosis without myelopathy or radiculopathy, lumbar region (principal)
CPT/HCPCS: 72148